=== PATIENT | female | born 2000 | race Caucasian/White ===

== ENCOUNTER 2024-12-24 10:56 | Outpatient (AMB) | payer OTHER, SELFPAY ==
--- NOTE | 2024-12-24 10:58 | MHC.PC.OV ---
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- norethindrone-e.estradiol-iron 1 mg-10 mcg (24)/10 mcg (2) (Lo Loestrin Fe) 1 tab PO DAILY Tobacco use date assessed: 12/24/24 Dental Screening Dental Screen Date: 12/24/24 Did you have a dental visit in the last 12 months?: Yes Did you have a dental problem in the last 6 months where you did not have access to dental care?: No Was dental information given to patient?: Patient has dentist HPI HPI Comments History of Present Illness Details 24 y/o F with dysmenorrhea, chondromalacia of patella L, Headaches, family hx of colon ca(paternal side), Vape nicotine Surgery: wisdom tooth extraction 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 Family hx: Mom and Dad alive, Younger 1/2 brother; Dad with cololn polyps, PGF colon ca around age 50, MGM MS; Health Maintenance Tdap 2024 [facility] 2024; normal Specialist [employer] E[facility] for epitaxis - no longer ff'd Previous PCP: [facility], limited records rec'd and reviewed. Dad with cololn polyps, PGF colon ca around age 50, History of Present Illness - The patient is a 24-year-old female presenting to establish care & for CPE Previous PCP: [facility], limited records rec'd and reviewed. - Notable family history includes paternal grandfather with colon cancer at age 50 and father with noncancerous polyps at age 42. Great grandfather of colon CA - History of dysmenorrhea and left patellar chondromalacia. - Headachs in past, well controlled now. - Resolved childhood nosebleeds. - Previously mild myopia; no longer requires corrective lenses. - ED visit 12/22/24 for L ring finger lac, [address], Tdap admin. 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 - Maintains a romantic relationship with a boyfriend and feels safe - Utilizes seatbelts; drives safely - Smokes using a vape, contains nicotine; weaning off - Previously danced; experienced knee issues - Regular dental visits; previously had a low eyeglass prescription - Currently on control Health Maintenance - Tetanus vaccination updated in recent visit following an accident - Pap smear performed approximately one to two months ago, reportedly normal - Consideration of lab screening under age 30; consented to blood work Review of Systems - General: Denies recent weight changes - ENT: Denies current recurrent nosebleeds - Respiratory: Denies any breathing difficulties - Cardiovascular: Denies chest pain - Gastrointestinal: Reports family comp the history of colon issues - Musculoskeletal: Reports history of patellar chondromalacia; denies current issues - Neurological: Reports headaches; denies dizziness - Dermatological: Denies any new skin lesions - Mental Health: Denies anxiety or depression - Allergies: Reports allergy to penicillin Physical Exam General: Well developed, well nourished, in no acute distress. Appears stated age. Head: Normocephalic, atraumatic. Eyes: Pupils are equal, round and reactive to light and accommodation. Conjunctivae are clear. Vision grossly normal. Ears: TMs clear AU, EACS WNL Nose: Patent, without discharge. Neck: Supple, no adenopathy or thyromegaly. Breast: Edu on SBE Lungs: Clear to auscultation bilaterally. No rales, rhonchi or wheeze noted. Good air flow in all soria. Heart: Regular rate and rhythm. No murmurs, click, rubs or gallops are noted. Abdomen: Bowel sounds present in all quadrants. The abdomen is soft, nontender, with no masses or organomegaly noted. No hernias are noted. : Deferred. Reviewed recommendations for routine [employer] Pulses: Peripheral pulses are equal and palpable bilaterally. Extremities: No clubbing, cyanosis nor edema is noted. Sutures present on finger from recent laceration, healing well. Neurologic: Gait and station normal. Cranial Nerves 2-12 intact. Motor strength grossly symmetrical and intact. No sensory loss. Balance normal. Skin: No rashes, ulcers, or lesions noted. Turgor is good. Skin color is good. Hair and nails are without abnormalities. L ring finger, dressing removed, lac edges well approx w/ sutures, no drainge or signs of infection; cleansed and DCD applied. Psych: Normal eye contact, affect and mood appropriate, and normal interactions. Patient is alert and appropriate to context. Mood is good, no anxiety or depression noted. Results Pending Discussion Notes Today, I discussed the patient's family history of colon issues, focusing on the noncancerous polyps in her father and the colon cancer history in her paternal line. I explained that based on current guidelines, she is not considered at high risk for early colon cancer screening. However, maintaining awareness of her father's health is crucial as any abnormal findings in his screenings may necessitate a reassessment of her risk level and potential earlier screening. We reviewed her ongoing use of control for dysmenorrhea and confirmed her allergy to penicillin, underlining the importance of avoidance. She expressed concerns about the colon cancer risk, and I advised attentive monitoring of family updates and encouraged continued healthy practices. I also discussed the importance of addressing nicotine use, and she remarked on her effort to reduce vaping. Finally, I introduced her to our patient portal for streamlined communication and monitoring. Assessment and Plan 1. Family History of Colon Polyps and Cancer - Not high risk for early colorectal cancer screening; monitor family updates. 2. Dysmenorrhea - Well-managed with control. 3. Chondromalacia Patella - Improved; no current therapy needed. 4. Headaches - No current treatment required. 5. 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 6. Nicotine Use via Vaping - Support cessation; decreasing usage. 7. Health Maintenance - Pap smear normal; tetanus updated; blood screening agreed. 8. Sutures L finger Advised to schedule appt on Tuesday of next week for removal. Keep clean dry and monitor for infection Patient Instructions - Keep track of family health updates, focusing on father's colonoscopy outcomes. - Continue control for dysmenorrhea management. - Wean off vaping to improve health; assistance available. - Review online patient portal for ease of communication with the clinic. - Follow up for lab work as planned and future physical exams. - Return if experiencing new or worsening symptoms. RTO 1 year CPE Consent I obtained consent from the patient for routine blood work to screen for common health parameters such as cholesterol and glucose levels. The process was explained along with the minimal risks associated with blood draws. The patient was informed about normal intervals for preventive screenings and expressed understanding and willingness to proceed. The patient agreed to communication via the patient portal for rapid access and monitoring. Patient was informed and verbally consented to the use of an ambient scribe for clinic note documentation during this visit. An additional 30 minutes was spent addressing the problem(s) noted at todays visit. This includes time spent before the visit reviewing the chart, time spent during the visit, and time spent after the visit on documentation reviewing laboratory results, diagnostic imaging, medications, performing a medically necessary evaluation, counseling on diagnoses, care coordination, ordering appropriate tests, ordering appropriate medications, review of tests performed by other providers, reporting test results with the patient, communication with other healthcare providers. [facility] Medical History (Updated 12/24/24 @ 11:56 by Gloria Rivera [facility]) No pertinent family history No pertinent past medical history Surgical History (Updated 12/24/24 @ 11:07 by Katerina Gates MA) No pertinent past surgical history Social History (Updated 12/24/24 @ 11:07 by Katerina Gates MA) Household Members: Family Household Members Other:: Parents Both parents involved: No Caregiver staying overnight: No Housing: House Are you a primary child care coordinator to a significant other at home: No Do you presently have visiting nurse or other home services: No 75 years or older and lives alone: No Alcohol intake: current Alcohol intake frequency: a few times a month Patient Tobacco Use Status: Never used Tobacco e-Cigarette/Vaping Use: Never Used Second Hand Smoke Exposure: No Current occupational status: employed 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 1. Little interest or pleasure in doing things: not at all 2. Feeling down, depressed, or hopeless: not at all 3. Trouble falling or staying asleep, or sleeping too much: not at all 4. Feeling tired or having little energy: not at all 5. Poor appetite or overeating: not at all 6. Feeling bad about yourself - or that you are a failure or have let yourself or your family down: not at all 7. Trouble concentrating on things, such as reading the newspaper or watching television: not at all 8. Moving or speaking so slowly that other people could have noticed. Or the opposite - being so fidgety or restless that you have been moving around a lot more than usual: not at all 9. Thoughts that you would be better off or of hurting yourself in some way: not at all Total score: 0 Depression Screening Interpretation: Negative Depression Screening Done: Yes 49237 - PHQ-9 Billing: Yes Source: Developed by Drs. Perry Watkins, Fatuma Crockett, Girma Kurtz and colleagues, with an educational milan from [employer]. Thrive Questionnaire Date Thrive assessed: 12/24/24 I am a: Patient What is your living situation today?: I have a steady place to live Within the past 12 months, did the food you bought not last and you didn't have the money to get more?: Never true Within the past 12 months, did you worry whether your food would run out before you got money to buy more?: Never true Do you have trouble paying for medicines?: No Do you have trouble getting transportation to medical appointments?: No Do you have trouble paying your heating and electricity bill?: No Do you have trouble taking care of your child, family member or friend?: No Do you have trouble with day-to-day activities such as bathing, preparing meals, shopping, managing finances, etc.?: No Are you currently unemployed and looking for a job?: No Are you interested in more education?: No Please select the resources that you would like help with: None Currently or been in a relationship where the following occur: No concerns reported THRIVE Score: 0 AUDIT C Alcohol Use Questionnaire (AUDIT-C) 1. How often do you have a drink containing alcohol?: 2-4 times a month 2. How many drinks containing alcohol do you have on a typical day when you are drinking?: 5 or 6 3. How often do you have six or more drinks on one occasion?: Less than monthly Total Score: 5 Score Reviewed/Action Taken: Yes MAXINE-7 AMB Questionnaire MAXINE-7 Date MAXINE - 7 assessed: 12/24/24 Feeling nervous, anxious, or on edge: 0 = Not at all Not being able to stop or control worryin = Not at all Worrying too much about different things: 0 = Not at all Trouble relaxin = Not at all Being so restless that it is hard to sit still: 0 = Not at all Becoming easily annoyed or irritable: 0 = Not at all Feeling afraid as if something awful might happen: 0 = Not at all Total MAXINE-7 score (0-4 normal; 5-9 mild; 10-14 moderate; 15-21 severe): 0 Source: Developed by Drs. Perry Watkins, Fatuma Crockett, Girma Kurtz and colleagues, with an educational milan from [employer]. MAXINE-7 Assessment Billing MAXINE-7 Assessment Tool: MAXINE-7 Assessment 93799 Physical exam (Primary Care) Vital Signs: Last Vital Signs Temp 97.4 F 12/24/24 11:02 Pulse 65 12/24/24 11:02 Resp 12 12/24/24 11:02 BP 118/68 12/24/24 11:02 Pulse Ox 99 12/24/24 11:02 Oxygen Delivery Method Room Air 12/24/24 11:02 BMI result Body Mass Index 23.0 Tobacco/Smoking Status: Tobacco use Status Tobacco use date assessed 12/24/24 12/24/24 11:04 Patient Tobacco Use Status Never used Tobacco 12/24/24 11:07 e-Cigarette/Vaping Use Never Used 12/24/24 11:07 Are you ready to quit: Yes Tobacco cessation counseling provided: Yes Items discussed: Nicotine replacement, QuitWorks and Other Relapse Prevention: discussed the importance of a supportive environment, discussed extending NRT, discussed negative mood or depression after quitting, weight gain after smoking is common and discussed dietary, exercise and/or lifestyle changes Number of minutes spent counselin CPT code: 85065 - 4-10 Minutes PHQ-9: PHQ-9 Score PHQ-9: Total score 0 12/24/24 11:04 Depression Screening Interpretation: Negative Thrive Assessment: Date of Thrive Assessment Date Thrive assessed 12/24/24 12/24/24 11:04 Currently or been in a relationship where the following occur: No concerns reported Coding Level of Care Code New Pt Level 3 (73712) New Pt Prev Care 18-39yr(36011 Diagnoses Encounter to establish care Z76.89 Family history of colon cancer Z80.0 Nicotine vapor product user Z72.0 Laceration of left ring finger without foreign body without damage to nail, initial encounter S61.215A Encounter type: initial encounter Finger: ring finger Damage to nail status: without damage Foreign body presence: without foreign body Laterality: left History of headache Z87.898 Laboratory exam ordered as part of routine general medical examination Z00.00 Encounter for general adult medical examination without abnormal findings Z00.00 Additional Codes MAXINE-7 Assessment Billing - MAXINE-7 Assessment Tool: MAXINE-7 Assessment 65053 ([id number]) PHQ-9 - 92909 - PHQ-9 Billing: Yes ([id number]) Vital Signs *Quality* - CPT code: 42602 - 4-10 Minutes ([id number]) Assessment & Plan Assessment & Plan (1) Encounter to establish care: Code(s): Z76.89 - Persons encountering health services in other specified circumstances (2) Family history of colon cancer: Comment: Dad age 42 noncancerous polyps PGF colon ca around age 50 Great PGF of colon ca unsure of age Code(s): Z80.0 - Family history of malignant neoplasm of digestive organs Category: Medical (3) Nicotine vapor product user: Code(s): Z72.0 - Tobacco use Category: Social Hx (4) Finger laceration: Code(s): S61.219A - Laceration without foreign body of unspecified finger without damage to nail, initial encounter Category: Medical Qualifiers: Encounter type: initial encounter Finger: ring finger Damage to nail status: without damage Foreign body presence: without foreign body Laterality: left Qualified Code(s): S61.215A - Laceration without foreign body of left ring finger without damage to nail, initial encounter (5) History of headache: Code(s): Z87.898 - Personal history of other specified conditions Category: Medical (6) Laboratory exam ordered as part of routine general medical examination: Code(s): Z00.00 - Encounter for general adult medical examination without abnormal findings Category: Medical (7) Encounter for general adult medical examination without abnormal findings: Onset Date: ~12/24/24 Code(s): Z00.00 - Encounter for general adult medical examination without abnormal findings Category: Medical Plan . Orders: Orders Ferritin Today Z00.00 - Encounter for general adult medical examination without abnormal findings Lipid Panel Today Z00.00 - Encounter for general adult medical examination without abnormal findings Vitamin B12 and Folate Today Z00.00 - Encounter for general adult medical examination without abnormal findings Vitamin D 25-OH Total Today Z00.00 - Encounter for general adult medical examination without abnormal findings Complete Blood Count no Diff Today Z00.00 - Encounter for general adult medical examination without abnormal findings Comprehensive Met. Panel Today Z00.00 - Encounter for general adult medical examination without abnormal findings Hemoglobin A1c Today Z00.00 - Encounter for general adult medical examination without abnormal findings Microalbumin, Random (w Creat) Today Z00.00 - Encounter for general adult medical examination without abnormal findings TSH reflex Free T4 Today Z00.00 - Encounter for general adult medical examination without abnormal findings Patient Instructions: Walk-In Care (Urgent Care): We Make it Easy Walk-in for urgent medical issues such as: ? Seasonal Allergies ? Insect Bites ? Cough ? Diarrhea ? Acute Asthma Attacks ? Back, Knee or Joint Pain ? Ear Infection ? Fever without a Rash ? Headaches ? Nausea ? Marcus Eye, Rash or Skin Irritation ? Sore Throat ? Sports Physicals ? Vomiting Most insurances are accepted. Patients do not need to be part of the [facility] to seek care at the walk-in clinic. Locations [facility] , [place] [address] ? [phone] [facility] Walk-In Care in [place] provides services to ages 18 and over. Open Tuesday-Tuesday: 8 a.m. to 5 p.m. and Tuesday: 9 a.m. to 3 p.m.* *Hours may vary due to staffing availability. To confirm Walk-In Care hours in [place], please call [phone]. [address] [place] [address] ? [phone] [facility] Walk-In Care in [place] provides services to ages 12 and over. Open Tuesday-Tuesday: 8 a.m. to 5 p.m. Hours may vary due to staffing availability. To confirm Walk-In Care hours in [place], please call [phone]. LABORATORY SERVICES: [facility] Lab ? Primary Location [address] [place] [address] Tuesday through Tuesday 6:00 AM ? 5:00 PM Tuesday 7:00 AM ? 11:00 AM* [phone] The [facility] Lab is centrally located near the front entrance of the Medical Center for easy outpatient access. Convenient parking is provided for outpatients. *Hours may vary due to staffing availability. To confirm Laboratory hours for any location, please call [phone]. Offsite Location For your convenience, we offer offsite laboratory draw stations at the following locations: [address] [place] [address] ? [address], [address] [place] [address] Tuesday through Tuesday 7:30 AM ? 1:00 PM* [phone] *Hours may vary due to staffing availability. To confirm Laboratory hours for any location, please call [phone]. [place] ? [address] Tuesday through Tuesday 6:00 AM ? 3:30 PM* Tuesday 6:30 AM ? 3 PM* [phone] *Hours may vary due to staffing availability. To confirm Laboratory hours for any location, please call [phone] [place] [address] Tuesday through Tuesday 7:30 AM ? 4:00 PM* [phone] *Hours may vary due to staffing availability. To confirm Laboratory hours for any location, please call [phone] [place] [address] Tuesday through 9:00 AM ? 4:00 PM* *Hours may vary due to staffing availability. To confirm Laboratory hours for any location, please call [phone]. Appointments are not necessary. Walk-ins are welcome. Like all the departments throughout the [facility], our Lab undergoes frequent reviews to ensure the quality and accuracy of test results, and our staff takes special pride in its status as a nationally accredited facility. Patient Portal: ONE PATIENT. ONE RECORD. BETTER CARE. [facility] has a fully integrated, cutting-edge mobile electronic health information system that has revolutionized the way we care for our patients and manage our organization. This system improves communication and coordination enabling us to provide safe, higher-quality care, and an overall positive experience for staff and patients. Our first priority, as always, is to deliver the highest quality care possible. The system is running in the background supporting that priority. This portal is for all [facility] services and practices. If you are experiencing any technical difficulties with enrolling or logging into the Patient Portal please complete the [facility] Patient Portal Technical Support Form. [facility] now offers a new secure on-line interactive tool for patients to review their health information ? ?Patient Portal. This interactive web portal will enable patients and their families to take an active role in their care by providing easy, secure access to their health information via the internet. The Patient Portal provides patients with instant access to their health information, including laboratory results, medications, allergies, demographic information, visit history, and more. In addition to managing their own care, parents and health care proxies with authorized consent will appreciate the ability to access the records of those individuals for whom they provide care. Please note: if you wish to gain access (Proxy) to another patient?s portal, you will be required to come to the Medical Records Department in person at [facility]. Both the patient giving proxy access and the proxy will need to provide photo identification and complete the appropriate authorization. The Patient Portal also allows track their appointments online. The [facility] Patient Portal also saves patients time by allowing them to submit updates to their demographic and contact information prior to their visits. Portal email notifications will also alert patients to any new activity on their portal, such as test results and new appointments. In order to initially enroll in the [facility] Patient Portal, you will need to enter some required information including the following: your [facility] Medical Record number your personal home email address name date of Please note: In order to enroll in the [facility] Patient Portal, we need to have your email address on file in your electronic medical record. ?The email address needs to be specific for one person (yourself) in order for your Portal enrollment to be successful. ?You can update your email address in person with our Registration staff when you are registering for a hospital visit. ?Otherwise, you will need to come to the Health Information Management (Medical Records) Department at [facility]. ?We are open from Tuesday ? Tuesday from 7:30 a.m. ? 4:30 p.m. ?You will be required to present a photo id. Once you have successfully enrolled in the Patient Portal, you will receive a one-time user id and password for the Portal, sent to your email address. ?This will allow you to log into the Patient Portal within 99 hrs and reset your own logon id and password, and define personal security questions. ?Once your permanent login and password have been set, you can log into the [facility] Patient Portal at any time via the blue button above or from the Portal [employer] button on any page of the [facility] website. [facility] and [facility] encourage all of our patients to enroll in Patient Portal as it presents a valuable opportunity for patients and their families to actively participate in their care and stay healthy Welcome to [facility]. ?We look forward to working with you. Health screenings for women You should visit your health care provider from time to time, even if you are healthy. The purpose of these visits is to: Screen for medical issues Assess your risk for future medical problems Encourage a healthy lifestyle Update vaccinations and other preventive care services Help you get to know your provider in case of an illness Information Even if you feel fine, you should still see your provider for regular checkups. These visits can help you avoid problems in the future. For example, the only way to find out if you have high blood pressure is to have it checked regularly. High blood sugar and high cholesterol levels also may not have any symptoms in the early stages. A simple blood test can check for these conditions. There are specific times when you should see your provider or receive specific health screenings. The [place] Preventive Services Task Force publishes a list of recommended screenings. Below are screening guidelines for women ages 18 to 39. BLOOD PRESSURE SCREENING Your blood pressure should be checked at least once every 3 to 5 years if: Your blood pressure is in the normal range (top number less than 120 mm Hg and bottom number less than 80 mm Hg) You don't have risk factors for high blood pressure Ask your provider if you need your blood pressure checked more often if: The top number is 120 to 129 mm Hg or the bottom number is 70 to 79 mm Hg You have diabetes, heart disease, kidney problems, are overweight, or have certain other health conditions You have a first-degree relative with high blood pressure You are Black You had high blood pressure during a If the top number is 130 mm Hg or greater or the bottom number is 80 mm Hg or greater, this is considered stage 1 hypertension. Schedule an appointment with your provider to learn how you can reduce your blood pressure. Watch for blood pressure screenings in your area. Ask your provider if you can stop in to have your blood pressure checked. BREAST CANCER SCREENING Experts do not agree about the benefits of breast self-exams in finding breast cancer or saving lives. Talk to your provider about what is best for you. A screening mammogram is not recommended for most women under age 40. Your provider may discuss and recommend mammograms, MRI scans, or ultrasounds if you have an increased risk for breast cancer, such as: A mother or sister who had breast cancer at a young age (most often starting screening earlier than the age the close relative was diagnosed) You carry a high-risk genetic marker CERVICAL CANCER SCREENING Cervical cancer screening should start at age 21 years unless your provider advises otherwise. After the first test: Women ages 21 through 29 should have a Pap test every 3 years. Exoprts do not agree on whether HPV testing is recommended for this age group. Women ages 30 through 65 should be screened with either a Pap test every 3 years or the HPV test every 5 years or both tests every 5 years (called cotesting ). Women who have been treated for precancer (cervical dysplasia) should continue to have Pap tests for 20 years after treatment or until age 65, whichever is longer. If you have had your uterus and cervix removed (total hysterectomy), and you have not been diagnosed with cervical cancer or precancer (high grade cervical neoplasia), you do not need cervical cancer screening. CHOLESTEROL SCREENING Cholesterol screening should begin at: Age 45 for women with no known risk factors for coronary heart disease Age 20 for women with known risk factors for coronary heart disease Repeat cholesterol screening should take place: Every 5 years for women with normal cholesterol levels More often if changes occur in lifestyle (including weight gain and diet) More often if you have diabetes, heart disease, kidney problems, or certain other conditions DIABETES SCREENING You should be screened for diabetes starting at age 35 and then repeated every 3 years if you have no risk factors for diabetes. Screening may need to start earlier and be repeated more often if you have other risk factors for diabetes, such as: You have a first degree relative with diabetes. You are overweight or have obesity. You have high blood pressure, prediabetes, or a history of heart disease. Screening for diabetes should be done if you are planning to become and you are overweight and have other risk factors such as high blood pressure. DENTAL EXAM Go to the dentist once or twice every year for an exam and cleaning. Your dentist will evaluate if you need more frequent visits. EYE EXAM Have an eye exam every 5 to 10 years before age 40. If you have vision problems, have an eye exam every 2 years or more often if recommended by your provider. You should have an eye exam that includes an examination of your retina (back of your eye) at least every year if you have diabetes. IMMUNIZATIONS Commonly needed vaccines include: Flu shot: get one every year. COVID-19 vaccine: ask your provider what is best for you. Tetanus-diphtheria and acellular pertussis (Tdap) vaccine: have one at or after age 19 as one of your tetanus-diphtheria vaccines if you did not receive it as an adolescent. Tetanus-diphtheria: have a booster (or Tdap) every 10 years. Varicella vaccine: receive 2 doses if you never had chickenpox or the varicella vaccine. Hepatitis B vaccine: receive 2, 3, or 4 doses, depending on your exact circumstances. Measles, mumps, and rubella (MMR) vaccine: receive 1 to 2 doses if you are not already immune to MMR. Your provider can tell you if you are immune. Ask your provider about the human papillomavirus (HPV) vaccine if: You have not received the HPV vaccine in the past You have not completed the full vaccine series (you should catch up on this shot) Ask your provider if you should receive other immunizations if you have certain health problems that increase your risk for some diseases such as pneumonia. INFECTIOUS DISEASE SCREENING Women who are sexually active should be screened for chlamydia and gonorrhea up until age 25. Women 25 years and older should be screened for chlamydia and gonorrhea if at high risk. Screening for hepatitis C: All adults ages 18 to 79 should get a one-time test for hepatitis C. people should be screened at every . Screening for human immunodeficiency virus (HIV): All people ages 15 to 65 should get a one-time test for HIV. Depending on your lifestyle and medical history, you may also need to be screened for infections such as syphilis and HIV, as well as other infections. PHYSICAL EXAM All adults should visit their provider from time to time, even if they are healthy. The purpose of these visits is to: Screen for disease Assess your risk of future medical problems Encourage a healthy lifestyle Update your vaccinations and other preventive care services Maintain a relationship with a provider in case of an illness Your height, weight, and BMI should be checked at every exam. During your exam, your provider may ask you about: Depression and anxiety Diet and exercise Alcohol and tobacco use Safety issues, such as using seat belts, smoke detectors, and intimate partner violence Your medicines and risk for interactions SKIN SELF-EXAM Your provider may check your skin for signs of skin cancer, especially if you're at high risk, such as if you: Have had skin cancer before Have close relatives with skin cancer Have a weakened immune system OTHER SCREENING Talk with your provider about colon cancer screening if you have a strong family history of colon cancer or polyps, or if you have had inflammatory bowel disease or polyps yourself. Routine bone density screening of women under 40 is not recommended. WHAT IS VAPING? Vaping is the act of inhaling aerosols from battery-powered devices called electronic cigarettes, also known as vapes, vape pens, e-hookahs, mods, and electronic nicotine delivery systems (ENDS).1 These aerosols are produced by the heating of a liquid that contains nicotine, flavorings, cannabinoid (CBD) oils, and other chemicals.1 Nicotine is a highly addictive and harmful chemical found in tobacco cigarettes and vapes.2 It is also the substance that keeps people using tobacco products, making it difficult to quit. Nicotine can rewire and activate the reward pathway in the brain, making people use this product over and over again regardless of risks.2,3 In some instances, vaping devices can also contain tetrahydrocannabinol (THC), which is the psychoactive compound of marijuana that gives people a ?high.?3,4 WHAT SYMPTOMS ARE ASSOCIATED WITH VAPING?1,4-6 ? E-vaping?associated lung injury (EVALI) ? Heart palpitations ? High heart rate ? Chest pain ? Shortness of breath WHO IS AT RISK?? ? Cough ? Asthma ? Nausea ? Vomiting ? Diarrhea ? Traditional tobacco smokers ? Marketers advertise e-cigarettes as a smoking-cessation tool.1,2,4,5 ? Youth populations, particularly teens2-4 ? One in four high school students reported the use of e-cigarettes.2,3 ? Since 2014, e-cigarettes have been the most commonly used tobacco product among [place] youth. In 2020, an estimated 3.6 million middle and high school students reported using an e-cigarette in the last 30 days.1 ? The flavors in vaping devices appeal to younger populations. WHAT ARE THE CONSEQUENCES OF VAPING? There are numerous particles that are inhaled when using nicotine-containing vaping products. These particles cause severe swelling and irritation to the lungs.3,5,6 This will damage the lungs and can lead to scarring and narrowing of the tubes in the lungs that allow for air exchange.6 Also, when you become addicted to nicotine, you may get symptoms like headaches or cravings when discontinuing or reducing the use of nicotine-containing products.5 HOW CAN A DOCTOR HELP YOU SUCCESSFULLY QUIT VAPING? ? Assess your readiness to quit, acknowledge barriers, and help you set goals.5 ? Consider referral to behavioral therapy. ? Educate about and recommend nicotine-replacement therapy.6 ? Recommend complementary resources and healthy habits: ? Call (802) QUIT-NOW for mobile help. ? Search ?How to Stop Vaping? online. ? Exercise can help with withdrawal symptoms and improve lung function.
[2024-12-24 11:02] VITALS: BP 118/68; PULSE 65; RESP 12; TEMP 36.3; O2SAT 99; BMI 23.0
--- OUTSIDE RECORDS SUMMARY | 2024-12-24 12:26 | XMS_ITS | Data Portability ---
Author Organization [place] [facility],, KATELYN GAINES MD Address [address] [address] Care Team Providers Care Patent Chemist Name Role Phone [facility] Primary Care Provider [phone] Assessment No assessment recorded. Plan of Treatment Reminders Order Date Submit Date Provider Last Modified By Organization Details Last Modified Time Details Appointments ANNUAL EXAM 2025 08:20A M Katelyn Gaines MD Not available Not available Not available Lab cytology report, thin prep, smear or scraping, cervical or vaginal 2024 025 MEGAN [facility] (Centralized Electronic Ordering - All Locations), Patient Can Go To The Location Of Their Choice, [id number] 10/29/2024 14:20:21 cytology report, thin prep, smear or scraping, cervical or vaginal 2023 024 MEGAN [facility] (Centralized Electronic Ordering - All Locations), Patient Can Go To The Location Of Their Choice, [id number] 10/27/2023 12:06:43 beta-HCG, qualitati ve, serum or plasma 2022 023 [email or web address] [facility] (Centralized Electronic Ordering - All Locations), Patient Can Go To The Location Of Their Choice, [id number] 12/02/2022 07:29:19 prolactin , serum 2022 023 [email or web address] (Centralized Electronic Ordering - All Locations), Patient Can Go To The Location Of Their Choice, 12/02/2022 07:29:19 TSH, serum or plasma 2022 023 t[facility] (Centralized Electronic Ordering - All Locations), Patient Can Go To The Location Of Their Choice, [id number] 12/02/2022 07:29:18 CBC w/ auto diff 2022 023 [facility] (Centralized Electronic Ordering - All Locations), Patient Can Go To The Location Of Their Choice, [id number] 12/02/2022 07:29:19 lyme disease igg+igm, serum, reflex western blot 2022 023 [facility] (Centralized Electronic Ordering - All Locations), Patient Can Go To The Location Of Their Choice, [id number] 12/02/2022 07:29:19 Referral None recorded. Procedures removal, implantab le contracep tive (PROC) 2022 023 DUNBAR In-Office Order, Internal Use Only DO Not Attach Compendium DO Not Attach Compendium, Do Not Delete/merge, [id number] 12/22/2022 09:47:39 Surgeries None recorded. Imaging None recorded. Medication Orders Lo Loestrin Fe 1 mg-10 mcg (24)/10 mcg (2) tablet 2024 025 [facility] #[id number], [address] [place], [address], 10/24/2024 09:29:50 Lo Loestrin Fe 1 mg-10 mcg (24)/10 mcg (2) tablet 2023 024 [facility] #[id number], [address] [place], [address], 10/24/2023 10:30:59 Patient TargetsNo targets recorded. Patient Instructions Encounter Date Encounter Id Patient Instructions Last Modified By Organization Details Last Modified Time 11/25/2022 [id number] This visit is a phone telehealth visit. The patient consented to the visit by phone. The patient was at home at the time of the call and the provider and patient were the only people on the line. I was at [address] [place] [address], [address] [place] [address], at the time of the call. She is concerned because she had had fatigue since she has had the abnormal vaginal bleeding happening, over the past year. She had a CBC done with her prior forestry and wildlife manager a few months ago and she was not anemic, however she feels she has been bleeding a lot since then. She would like blood testing done. She notes she has a generalized lower abdominal discomfort that happens after she eats, for the past several months, she has not discussed this with her PCP yet. Note from 11/22/22: She is here as a new patient for second opinion. she had a Nexplanon placed in 08/01, and for the first 4 to 5 months had amenorrhea after it was placed, but then started having irregular bleeding, and has had irregular bleeding since then. Her [employer] R[employer]ER, Dr. Brittany Barton, had her get a CBC, which was normal, an HCG, which was negative, and a pelvic sonogram which was unremarkable. The endometrium was thin, at 1 mm. She was put on oral premarin 0.625 mg a day, for a month, but it did not improve the irregular bleeding. A month ago she started taking daily norethindrone, but that has not improve the bleeding either. She notes her bleeding can get painful, and she on occasion gets menstrual headaches. She was originally put on the OCP in freshman year of high school due to severe dysmenorrhea, not for control, It used to be so bad I would throw up form the pain. She was switched from one pill to another but had irregular bleeding on both. she never took Lo Loestin. She has a family history of endometriosis. We discussed that her endometrium may actually be very thin and this may be contributing to the bleeding. The Premarin did not improve the bleeding, however. She would like to switch from this form of control as she is tired of the abnormal bleeding. We discussed options and she would like to try the lo loestrin, and ther reasoning why this may work, will add this in now and have her return for Nexplanon removal. She understands that this may not control the abnormal bleeding either, there is no guarantee. If this does not then the next try would be for depo provera. She is reassured that her prior forestry and wildlife manager did do everything in the right order, her case is just challenging. In regard to the fatigue, will check cbc, tsh, and lyme. In regard to the DUB will check serum prolactin. In regard to the abdominal pain she is advised to contact her PCP, and to also try OTC Prilosec generic for a month to see if it helps. All questions answered. The patient was agreeable to this plan. She is aware of the limitations caused by the covid restrictions, and this phone call. Face to face discussion 30 minutes Not available 11/25/2022 09:18:37 12/22/2022 [id number] She is here for Nexplanon removal. She has bene on the lo loestrin for a month and notes a great improvement in her moods, and the abnormal bleeding stopped for a week, she had a few days of bleeding, and has now stopped for the past 10 days, so she is happy about that. It is the longest she has gone without bleeding for many months. She is tolerating te pills well and remembering to take them daily, and the discount card brought the cost down to $25 for 3 months, which is affordable. We discussed that she could try to take the pills for another cycle then stop and see if the amenorrhea continued with the nexplanon alone, as it has only been in since 08/01. She declines this option as she notes her moods are much improved on this OCP. She tolerated the removal well. Post procedure care discussed. Not available 12/22/2022 09:43:37 10/24/2023 [id number] learning about healthy weight Not available 10/24/2023 10:30:42 She is here for annual, this is her first annual here. She had her Nexplanon removed in 12/31, is doing well on the lo loestrin, no abnormal bleeding. Menses last 7 days of light to moderate bleeding, never heavy. She appears to be doing well. . Monthly self breast exam was taught, and stressed, and is advised to call if she discovers any new mass in the breast. We reviewed the interaction of the OCP with antibiotics. We discussed the need to use a condom during antibiotic use and also for a minimum of three weeks following the use of antibiotics. We discused interactions with some herbal and OTC meds, such as [facility] Possible side effects, and the stated risk of one in 10,000 to develop a blood clot/ DVT/PE were also discussed. Safe sex was stressed. All questions answered, rx to be called in to pharmacy. [email or web address] Not available 10/24/2023 10:31:10 06/04/2024 [id number] secondary amenorrhea: care instructions [email or web address] Not available 06/04/2024 11:11:57 She is here to discuss her abnormal vaginal bleeding pattern. She is concerned because she has had so many problems in the past. We had removed her Nexplanon in 12/31 and switched her to te lo loestrin. She notes that her abnormal bleeding resolved immediately and she was having regular, light meses monthly. However she missed her menses in April entirely, and the period in May was only 2 days of light spotting, that happened at the right time of the cycle in her pill pack. No pelvic pain. The bleeding was 05/29 and 05/30, no bleeding since then. She has not missed any pills. She did a few home tests, all negative. ____ Note from 11/30: She is here as a new patient for second opinion. she had a Nexplanon placed in 08/01, and for the first 4 to 5 months had amenorrhea after it was placed, but then started having irregular bleeding, and has had irregular bleeding since then. Her [employer] SCRE[employer] RACKER, Dr. Brittany Barton, had her get a CBC, which was normal, an HCG, which was negative, and a pelvic sonogram which was unremarkable. The endometrium was thin, at 1 mm. She was put on oral premarin 0.625 mg a day, for a month, but it did not improve the irregular bleeding. A month ago she started taking daily norethindrone, but that has not improve the bleeding either. She notes her bleeding can get painful, and she on occasion gets menstrual headaches. She was originally put on the OCP in freshman year of high school due to severe dysmenorrhea, not for control, It used to be so bad I would throw up form the pain. She was switched from one pill to another but had irregular bleeding on both. she never took Lo Loestin. She has a family history of endometriosis. We discussed that her endometrium may actually be very thin and this may be contributing to the bleeding. The Premarin did not improve the bleeding, however. She would like to switch from this form of control as she is tired of the abnormal bleeding. We discussed options and she would like to try the lo loestrin, and ther reasoning why this may work, will add this in now and have her return for Nexplanon removal. She understands that this may not control the abnormal bleeding either, there is no guarantee. If this does not then the next try would be for depo provera. She is reassured that her prior forestry and wildlife manager did do everything in the right order, her case is just challenging. ___ She has been very happy with this pill, but in the past she had amenorrhea followed by menorrhagia on other OCP and so she is worried that may happen again. She is advised that because the lo loestrin only has 2 pill free days, it is common to miss cycles or have amenorrhea. As long as her bleeding is at the right time, and short and there is no pain, that is considered normal for this pill. If she has complete amenorrhea that can also be normal. She is advise to do a home test if she misses a cycle but if negative and no pain then likely it is just the pill dong what it does. She is reassured. All questions answered. Face to face discussion, chart review and coordination of care: 25 minutes alan Not available 06/04/2024 11:39:46 10/24/2024 [id number] learning about healthy weight alan Not available 10/24/2024 09:29:47 She is here for annual, doing well on the Lo Loestrin, has no menses, no dysmenorrhea, is very happy. __ Note from 06/03: She is here to discuss her abnormal vaginal bleeding pattern. She is concerned because she has had so many problems in the past. We had removed her Nexplanon in 12/31 and switched her to te lo loestrin. She notes that her abnormal bleeding resolved immediately and she was having regular, light meses monthly. However she missed her menses in October entirely, and the period in May was only 2 days of light spotting, that happened at the right time of the cycle in her pill pack. No pelvic pain. The bleeding was 05/29 and 05/30, no bleeding since then. She has not missed any pills. She did a few home tests, all negative. ____ Note from 11/30: She is here as a new patient for second opinion. she had a Nexplanon placed in 08/01, and for the first 4 to 5 months had amenorrhea after it was placed, but then started having irregular bleeding, and has had irregular bleeding since then. Her [employer]CRE[employer] R[employer]ER, Dr. Brittany Barton, had her get a CBC, which was normal, an HCG, which was negative, and a pelvic sonogram which was unremarkable. The endometrium was thin, at 1 mm. She was put on oral premarin 0.625 mg a day, for a month, but it did not improve the irregular bleeding. A month ago she started taking daily norethindrone, but that has not improve the bleeding either. She notes her bleeding can get painful, and she on occasion gets menstrual headaches. She was originally put on the OCP in freshman year of high school due to severe dysmenorrhea, not for control, It used to be so bad I would throw up form the pain. She was switched from one pill to another but had irregular bleeding on both. she never took Lo Loestin. She has a family history of endometriosis. We discussed that her endometrium may actually be very thin and this may be contributing to the bleeding. The Premarin did not improve the bleeding, however. She would like to switch from this form of control as she is tired of the abnormal bleeding. We discussed options and she would like to try the lo loestrin, and ther reasoning why this may work, will add this in now and have her return for Nexplanon removal. She understands that this may not control the abnormal bleeding either, there is no guarantee. If this does not then the next try would be for depo provera. She is reassured that her prior forestry and wildlife manager did do everything in the right order, her case is just challenging. ___ She appears to be doing well. Monthly self breast exam was taught, and stressed, and is advised to call if she discovers any new mass in the breast. We reviewed the interaction of the OCP with antibiotics. We discussed the need to use a condom during antibiotic use and also for a minimum of three weeks following the use of antibiotics. We discused interactions with some herbal and OTC meds, such as [facility] A's Possible side effects, and the stated risk of one in 10,000 to develop a blood clot/ DVT/PE were also discussed. Safe sex was stressed. All questions answered, rx to be called in to pharmacy. Not available 10/24/2024 09:30:07 Reason for Referral None Reported. Results Created Date Observation Date Name Description Value Unit Range Abnormal Flag Note LastModifiedBy Organization Detail LastModifiedTime 12/23/1912/22/2022 remov al, impla ntabl e contr acept carmine (PROC ) device intact Not Available In-Office Order Internal Use Only DO Not Attach Compendium DO Not Attach Compendium, Do Not Delete/merge, [id number] 12/22/2022 08:53:38 10/24/19 24 10/26/2023 IGP, CTNG, RFX APTIM A HPV ASCU chlamydia, nuc. acid amp Negati ve negati ve Not Available [facility] ([facility]) [address] [place], [address], 10/27/2023 12:06:43 10/24/19 24 10/26/2023 IGP, CTNG, RFX APTIM A HPV ASCU gonococcus, nuc. acid amp Negati ve negati ve Not Available [facility] ([facility]) [address] [place], [address], 10/27/2023 12:06:43 10/24/19 24 10/27/2023 IGP, CTNG, RFX APTIM A HPV ASCU diagnosis: Commen t NEGAT CARMINE FOR INTRA EPITH ELIAL LESIO N OR MALIG MICHELLE . FUNGA L ORGAN ISMS MORPH OLOGI OLAMIDE CONSI STENT WITH JONATHAN DA SPECI ES ARE PRESE NT. Not Available [facility] ([facility]) [address] [place], [address], 10/27/2023 12:06:43 10/24/19 24 10/27/2023 IGP, CTNG, RFX APTIM A HPV ASCU specimen adequacy: Tye torres for evalu ation . Endoc ervic al and/o r squam ous metap lasti c cells (endo cervi tyrese compo nent) are prese nt. Not Available [facility] ([facility]) [address] [place], [address], 10/27/2023 12:06:43 10/24/19 24 10/27/2023 IGP, CTNG, RFX APTIM A HPV ASCU clinician provided ICD10: Tye nunn Z01.4 19 Not Available [facility] ([facility]) [address] [place], [address], 10/27/2023 12:06:43 10/24/19 24 10/27/2023 IGP, CTNG, RFX APTIM A HPV ASCU performed by: Tye Simmons , Ale nunn (ASCP ) Not Available [facility] ([facility]) [address] [place], [address], 10/27/2023 12:06:43 10/24/19 24 10/27/2023 IGP, CTNG, RFX APTIM A HPV ASCU . . Not Available [facility] ([facility]) [address] [place], [address], 10/27/2023 12:06:43 10/24/19 24 10/27/2023 IGP, CTNG, RFX APTIM A HPV ASCU note: Tye nunn The Pap smear is a scree gaby test desig samir to aid in the detec tion of roque ligna nt and malig nant condi tions of the uteri ne cervi x. It is not a diagn ostic proce dure and shoul d not be used as the sole means of detec ting cervi tyrese cance r. Both false -posi tive and false -nega tive repor ts do occur . Not Available [facility] ([facility]) [address] [place], [address], 10/27/2023 12:06:43 10/24/19 24 10/27/2023 IGP, CTNG, RFX APTIM A HPV ASCU test methodology: TNP The Thin Prep( R) Image r was unabl e to read this speci men. There fore a manua l revie w was perfo rmed. Not Available [facility] ([facility]) [address] [place], [address], 10/27/2023 12:06:43 10/24/19 24 10/27/2023 IGP, CTNG, RFX APTIM A HPV ASCU . Commen t The HPV DNA refle x crite nohemi were not met with this speci men resul t there fore, no HPV testi ng was perfo rmed. Not Available [facility] ([facility]) [address] [place], [address], 10/27/2023 12:06:43 10/25/19 25 10/25/2024 IGP, CTNG, RFX APTIM A HPV ASCU chlamydia, nuc. acid amp Negati ve negati ve Not Available [facility] ([facility]) [address] [place], [address], 10/29/2024 14:20:21 10/25/19 25 10/25/2024 IGP, CTNG, RFX APTIM A HPV ASCU gonococcus, nuc. acid amp Negati ve negati ve Not Available [facility] ([facility]) [address] [place], [address], 10/29/2024 14:20:21 10/25/19 25 10/29/2024 IGP, CTNG, RFX APTIM A HPV ASCU diagnosis: Commen t NEGAT CARMINE FOR INTRA EPITH ELIAL LESIO N OR MALROSEY MICHELLE . FUNGA L ORGAN ISMS MORPH OLOGI OLAMIDE CONSI STENT WITH JONATHAN DA SPECI ES ARE PRESE NT. Not Available [facility] ([facility]) [address] [place], [address], 10/29/2024 14:20:21 10/25/19 25 10/29/2024 IGP, CTNG, RFX APTIM A HPV ASCU specimen adequacy: Commen t Satis facto ry for evalu ation . Endoc ervic al and/o r squam ous metap lasti c cells (endo cervi tyrese compo nent) are prese nt. Not Available [facility] ([facility]) [address] [place], [address], 10/29/2024 14:20:21 10/25/19 25 10/29/2024 IGP, CTNG, RFX APTIM A HPV ASCU clinician provided ICD10: Tye t Z01.4 19 Not Available [facility] ([facility]) [address] [place], [address], 10/29/2024 14:20:21 10/25/19 25 10/29/2024 IGP, CTNG, RFX APTIM A HPV ASCU performed by: Tye t Danny Wilson , Cytol ogist (ASCP ) Not Available [facility] ([facility]) [address] [place], [address], 10/29/2024 14:20:21 10/25/19 25 10/29/2024 IGP, CTNG, RFX APTIM A HPV ASCU . . Not Available [facility] ([facility]) [address] [place], [address], 10/29/2024 14:20:21 10/25/19 25 10/29/2024 IGP, CTNG, RFX APTIM A HPV ASCU note: Commen t The Pap smear is a scree gaby test desig samir to aid in the detec tion of roque ligna nt and malig nant condi tions of the uteri ne cervi x. It is not a diagn ostic proce dure and shoul d not be used as the sole means of detec ting cervi tyrese cance r. Both false -posi tive and false -nega tive repor ts do occur . Not Available [facility] ([facility]) [address] [facility], [place], [address], 10/29/2024 14:20:21 10/25/19 25 10/29/2024 IGP, CTNG, RFX APTIM A HPV ASCU test methodology: Comm t This liqui d based ThinP rep(R ) pap test was scree samir with the use of an image guide d syste m. Not Available [facility] ([facility]) [address] [facility], [place], [address], 10/29/2024 14:20:21 10/25/19 25 10/29/2024 IGP, CTNG, RFX APTIM A HPV ASCU . Commen t The HPV DNA refle x crite nohemi were not met with this speci men resul t there fore, no HPV testi ng was perfo rmed. Not Available [facility] ([facility]) [address] [facility], [place], [address], 10/29/2024 14:20:21 11/23/19 23 11/26/2022 US, pelvi s, trans abdom inal + trans vagin al No observ ation record ed. BARCODE Not Available 2022 08:53:22 Result Notes None recorded. Problems No Known Problems Procedures Surgical History Date Name Laterality Status Provider Name and Address Organization Details Recorded Time 3 Implanon Removal completed Katelyn Gaines MD [address] [facility],[address], [place], [address], [place] [facility], 12/22/2022 09:44:40 Imaging Results None recorded. Procedure Notes None recorded. Medical Equipment None Reported. Allergies Allergen ID Allergen Name Allergen Category Reaction Reaction Severity Criticality Documentation Date Start Date Code Code System Note Provider Name and Address Organization Details Recorded Time 09842 Product containin g penicilli n (product) medicatio n hives Not available Not available 11/22/2022 13752 [id number] SNDARYN Jolly Adam hutchins [place] [facility], 3 08:32:19 Medications Name Sig Start Date Stop Date Status Note LastModified by Organization Details LastModified Time Vitamin B-2 100 mg tablet TAKE 1 TABLET BY MOUTH TWICE A DAY 06/04 completed Not Available Not Available Not Available clindamycin HCl 300 mg capsule TAKE 1 CAPSULE BY MOUTH EVERY 8 HOURS UNTIL FINISHED 10/24 completed Not Available Not Available Not Available fluconazole 150 mg tablet TAKE 1 TABLET BY MOUTH EVERY DAY FOR 1 DAY active Not Available Not Available No t Available sumatriptan 50 mg tablet PLEASE SEE ATTACHED FOR DETAILED DIRECTION S 10/23 completed Not Available Not Available Not Available magnesium 500 mg (as magnesium oxide) tablet TAKE 1 TABLET BY MOUTH EVERY DAY 10/24 completed Not Available Not Available Not Available ibuprofen 600 mg tablet TAKE 1 BY MOUTH EVERY 6 HOURS NEEDED FOR PAIN 10/24 completed Not Available Not Available Not Available methylpredn isolone 4 mg tablets in a dose pack TAKE 6 TABLETS ON DAY 1 DIRECTED ON PACKAGE AND DECREASE BY 1 TAB EACH DAY FOR A TOTAL OF 6 DAYS 10/24 completed Not Available Not Available Not Available norethindro benitez (contracept carmine) 0.35 mg tablet TAKE 1 TABLET BY MOUTH EVERY DAY 11/25 completed Not Available Not Available Not Available ondansetron 4 mg disintegrat ing tablet DISSOLVE 1 TABLET ON TONGUE EVERY 8 HOURS NEEDED FOR NAUSEA 10/24 completed Not Available Not Available Not Available oxycodone 5 mg tablet TAKE 1 TABLET BY MOUTH EVERY 4 HOURS NEEDED FOR PAIN 10/24 completed Not Available Not Available Not Available Premarin 0.625 mg tablet TAKE 1 TABLET BY MOUTH EVERY DAY 11/22 completed Not Available Not Available Not Available Mandeep (28) 0.4 mg-35 mcg tablet TAKE 1 TABLET BY MOUTH TWICE A DAY FOR 1 WEEK, THEN TAKE ONCE A DAY 11/22 completed Not Available Not Available Not Available magnesium oxide 500 mg capsule TAKE 1 CAPSULE BY MOUTH ONCE DAILY AT [facility] THE SAME TIME EACH DAY.*NOT COVERED 06/04 completed Not Available Not Available Not Available Lo Loestrin Fe 1 mg-10 mcg (24)/10 mcg (2) tablet TAKE 1 TABLET BY MOUTH EVERY DAY FOR 84 DAYS active Not Available Not Available No t Available EC-Naproxen 500 mg tablet,melanie yed release TAKE 1 TABLET BY MOUTH 2 TIMES A DAY NEEDED MENSTRUAL PAIN 10/24 completed Not Available Not Available Not Available Vitals Date Recorded Body height Body mass index (BMI) Body weight Body temperature Heart rate Systolic blood pressure Diastolic blood pressure Provider Name and Address Organization Details Last Updated DateTime 4 166.37 cm 21.7 kg/m2 87435.6 3 g 97.4 [degF] 87 /min 109 mm[Hg] 75 mm[Hg] luzmaria Weir in [facility], 4 09:53:46 Date Recorded Body height Body mass index (BMI) Body weight Heart rate Systolic blood pressure Diastolic blood pressure Provider Name and Address Organization Details Last Updated DateTime 5 166.37 cm 22.5 kg/m2 65057.8 7 g 77 /min 130 mm[Hg] 66 mm[Hg] Shanae Weir in [facility], 5 09:00:46 Date Recorded Body height Provider Name an d Address Organization Details Last Updated DateTime 11/25/2022 166.37 cm Shanae Espinoza in [facility], 11/25/2022 08:31:41 Date Recorded Body height Body mass index (BMI) Body mass index (BMI) [Percentile] Per age and sex Body weight Systolic blood pressure Diastolic blood pressure Provider Name and Address Organization Details Last Updated DateTime 3 166.37 cm 22 kg/m2 52 % 17151.3 8 g 112 mm[Hg] 57 mm[Hg] Anusha Weir in [facility], 3 08:54:53 Date Recorded Body height Body mass index (BMI) Body weight Body temperature Heart rate Systolic blood pressure Diastolic blood pressure Provider Name and Address Organization Details Last Updated DateTime 4 166.37 cm 22.7 kg/m2 01979.1 8 g 98.1 [degF] 84 /min 123 mm[Hg] 74 mm[Hg] Shanea Weir in [facility], 4 10:51:13 Social History Question Answer Notes LastModified by ONOFFMIX (?) Details LastModified Time Tobacco Smoking Status Never Smoker HESHAM Smith in [facility], 11/22/2022 08:37:25 What Is Your Level Of Caffeine Consumption? Occasional Information not available 11/22/2022 In The 14 Days Before Symptom Onset, Have You Had Close Contact With A Laboratory-confir med COVID-19 While That Case Was Ill? No Information not available 11/22/2022 In The 14 Days Before Symptom Onset, Have You Had Close Contact With A Person Who Is Under Investigation For COVID-19 While That Person Was Ill? No Information not available 11/25/2022 Have You Been To An Area Known To Be High Risk For COVID-19? No Information not available 11/22/2022 What Is The Highest Grade Or Level Of School You Have Completed Or The Highest Degree You Have Received? [id number] Information not available 11/22/2022 Who Is Your Employer? [employer] Code. Information not available 11/22/2022 Are There Any Guns Present In Your Home? No Information not available 11/22/2022 To Which Gender Do You Self-identify? Female Information not available 11/22/2022 What Was The Date Of Your Most Recent Tobacco Screening? 10/24/2024 Information not available 10/24/2024 What Is Your Relationship Status? Single Information not available 11/22/2022 Are You Sexually Active? Yes Information not available 11/22/2022 Sex: Female Functional Status Question Answer Note LastModified by EdeniQ ion Details LastModified Time Do you use any illicit or recreational drugs? No Information not available 11/22/2022 Do you or have you ever used any other forms of tobacco or nicotine? No Information not available 11/22/2022 What is your level of alcohol consumption? None Information not available 11/22/2022 Are you currently employed? 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 Occasional Information not available 11/22/2022 Mental Status Question Answer Note LastModified by Organization D etails LastModified Time Do you feel stressed (tense, restless, nervous, or anxious, or unable to sleep at night)? [id number] Information not available 11/22/2022 Family History Relationship Description Onset Age of this Age Resolved Age Notes LastModified by Organization Details LastModified Time Maternal Grandmother Problem great pancre atic [email or web address] Not available 11/22/2022 08:35:45 Paternal Grandfather Malignant tumor of colon also great grandf ather tmeczywor Not available 11/22/2022 08:36:19 Father Malignant tumor of colon precan cer polyps remove d tmeczywor Not available 11/22/2022 08:36:46 Medical History Condition Response Anesthesia complications N High Blood Pressure N Candidate for MyRisk panel N Autoimmune Condition N Lung Disease N Depression N Defects or Inherited Disease N History of Ovarian Cancer N BRCA testing in past N Anxiety Disorder N Arthritis N Infertility N History of Cancer N Endometriosis Y Thyroid Problems N Kidney or Bladder Problems N GI Problems N Anemia N History of Breast Cancer N KOFI exposure N Osteopenia N Psychiatric Illness N Diabetes N Headaches or Migraines N Asthma N Hepatitis N Heart Disease Y Hypertension N Osteoporosis N Gynecological History Statement/Question Response Flow Moderate Date of LMP 10/17/2023 Frequency of Cycle (Q days) 28 Duration of Flow (days) 7 Age at Menarche 18 Current Control Method BCPs Age at First Child Obstetrics History GPAL:G 0 P 0 0 0 0 Immunizations Vaccine Type Date Status Note Provider Nam christoph and Address Organization Details Recorded Time COVID-19 Non-US Vaccine, Product Unknown 05/26/202 1 completed Not Available [facility] 12/22/2022 08:54:01 HPV9 6 completed Shanae [place]ec[place] null, [place] - [facility], 11/25/2022 08:31:59 COVID-19, mRNA, LNP-S, PF, 100 mcg/0.5mL dose or 50 mcg/0.25mL dose 1 completed Shanae Meczywor null, [place] - [facility], 11/25/2022 08:31:59 COVID-19, mRNA, LNP-S, PF, 100 mcg/0.5mL dose or 50 mcg/0.25mL dose 1 completed Shanae Meczywor null, [place] - [facility], 11/25/2022 08:31:59 Tdap 5 completed Shanae Meczywor null, [place] - [facility], 11/25/2022 08:31:59 HPV, quadrivalent 5 completed Shanae Meczywor null, [place] - [facility], 11/25/2022 08:31:59 HPV, quadrivalent 5 completed Shanae Meczywor null, [place] - [facility], 11/25/2022 08:31:59 Hep A, ped/adol, 2 dose 7 completed Shanae Meczywor null, [place] - [facility], 11/25/2022 08:31:59 Hep A, ped/adol, 2 dose 8 completed Shanae Meczywor null, [place] - [facility], 11/25/2022 08:31:59 meningococcal MCV4P 5 completed Shanae Meczywor null, [place] - [facility], 11/25/2022 08:31:59 meningococcal MCV4P 9 completed Shanae Meczywor null, [place] - [facility], 11/25/2022 08:31:59 Influenza, split virus, quadrivalent, PF 9 completed Shanae hutchins [place] - [facility], 11/25/2022 08:31:59 Past Encounters Encounter ID Performer Location Encounter Start Date Encounter Closed Date Diagnosis/Indication Diagnosis SNOMED-CT Code Diagnosis ICD10 Code Diagnosis Note [id number] MD KATELYN Lozada MD [address],[place] [address] [place] [id number] 11/22/2022 08:23:32 11/22/2022 10:09:02 Abnormal uterine bleeding 0885670678 9100 N93.9 [id number] MD KATELYN Lozada MD [address] [facility] [id number] 11/25/2022 08:30:33 11/25/2022 10:51:27 Fatigue 32397439 R53.83 Abnormal u terine bleeding 3885852626 9100 N93.9 Lower abdominal pain 545 80312 R10.30 [id number] MD KATELYN Lozada MD [address] [place] [address],[place] [address] [place] [id number] 12/22/2022 08:49:48 12/22/2022 09:54:47 Subcutaneous contraceptive implant present 170692602 Z30.46 [id number] MD KATELYN Lozada MD [address] [place] [address],[place] [address] [place] [id number] 10/24/2023 09:50:46 10/24/2023 12:06:47 Specialized medical examination 24110801 Z01.419 Venereal d isease screening 174406962 Z11.3 [id number] MD KATELYN Lozada MD [address] [facility] [address] 06/04/2024 10:44:34 06/04/2024 16:03:15 Amenorrhea 90090304 N91.2 [id number] MD KATELYN Lozada MD [address] [facility] [address] [place] [id number] 10/24/2024 08:52:32 10/24/2024 10:38:19 Specialized medical examination 02167722 Z01.419 Venereal d isease screening 419809068 Z11.3 Health Concerns Section Related Observation LastModified by Organization Detai ls LastModified Time None Recorded Concern Status LastModified by Organization Details LastModified Time None Recorded Advance Directives Directive None Recorded Payers Insurance Date Sequence Insurance Name Policy Number Policy [place] Covered Member ID [place] Member ID Guarantor Name 10/24/2024 1 [facility] (PPO) [id number] Tamy Evansmazin [id number] Art Kasey 10/24/2024 1 [facility] (PPO) [id number] 01 Tamy Evansmazin [id number] Art Parks Notes Date Note Type Note Provider Name and Address Organization Details Recorded Time 11/25/2022 text/html This visit is a phone telehealth visit. The patient consented to the visit by phone. The patient was at home at the time of the call and the provider and patient were the only people on the line. I was at [address] [place] [address], [address], [place], at the time of the call. She is concerned because she had had fatigue since she has had the abnormal vaginal bleeding happening, over the past year. She had a CBC done with her prior forestry and wildlife manager a few months ago and she was not anemic, however she feels she has been bleeding a lot since then. She would like blood testing done. She notes she has a generalized lower abdominal discomfort that happens after she eats, for the past several months, she has not discussed this with her PCP yet. Note from 11/22/22: She is here as a new patient for second opinion. she had a Nexplanon placed in 08/01, and for the first 4 to 5 months had amenorrhea after it was placed, but then started having irregular bleeding, and has had irregular bleeding since then. Her SILK SCREEN PRINTING RACKER, Dr. Brittany Barton, had her get a CBC, which was normal, an HCG, which was negative, and a pelvic sonogram which was unremarkable. The endometrium was thin, at 1 mm.She was put on oral premarin 0.625 mg a day, for a month, but it did not improve the irregular bleeding. A month ago she started taking daily norethindrone, but that has not improve the bleeding either.She notes her bleeding can get painful, and she on occasion gets menstrual headaches. She was originally put on the OCP in freshman year of high school due to severe dysmenorrhea, not for control, It used to be so bad I would throw up form the pain. She was switched from one pill to another but had irregular bleeding on both. she never took Lo Loestin.She has a family history of endometriosis.We discussed that her endometrium may actually be very thin and this may be contributing to the bleeding. The Premarin did not improve the bleeding, however. She would like to switch from this form of control as she is tired of the abnormal bleeding. We discussed options and she would like to try the lo loestrin, and ther reasoning why this may work, will add this in now and have her return for Nexplanon removal. She understands that this may not control the abnormal bleeding either, there is no guarantee. If this does not then the next try would be for depo provera. She is reassured that her prior forestry and wildlife manager did do everything in the right order, her case is just challenging. Katelyn Gaines MD [address], [place], [phone], [facility], 11/25/2022 09:18:57 12/22/2022 text/html She is here for Nexplanon removal. She has bene on the lo loestrin for a month and notes a great improvement in her moods, and the abnormal bleeding stopped for a week, she had a few days of bleeding, and has now stopped for the past 10 days, so she is happy about that. It is the longest she has gone without bleeding for many months. She is tolerating te pills well and remembering to take them daily, and the discount card brought the cost down to $25 for 3 months, which is affordable. Katelyn Gaines MD [address], [place], [id number], [facility], 12/22/2022 09:45:21 10/24/2023 text/html She is here for annual, this is her first annual here. She had her Nexplanon removed in 12/31, is doing well on the lo loestrin, no abnormal bleeding. Menses last 7 days of light to moderate bleeding, never heavy. Katelyn Gaines MD [address] [facility],[address], [place], [phone], [place] [facility], 10/24/2023 10:31:26 06/04/2024 text/html She is here to discuss her abnormal vaginal bleeding pattern. She is concerned because she has had so many problems in the past. We had removed her Nexplanon in 12/31 and switched her to te lo loestrin. She notes that her abnormal bleeding resolved immediately and she was having regular, light meses monthly. However she missed her menses in April entirely, and the period in May was only 2 days of light spotting, that happened at the right time of the cycle in her pill pack.No pelvic pain.The bleeding was 05/29 and 05/30, no bleeding since then. She has not missed any pills. She did a few home tests, all negative. Note from 11/30: She is here as a new patient for second opinion. she had a Nexplanon placed in 08/01, and for the first 4 to 5 months had amenorrhea after it was placed, but then started having irregular bleeding, and has had irregular bleeding since then. Her SILK SCREEN PRINTING RACKER, Dr. Brittany Barton, had her get a CBC, which was normal, an HCG, which was negative, and a pelvic sonogram which was unremarkable. The endometrium was thin, at 1 mm.She was put on oral premarin 0.625 mg a day, for a month, but it did not improve the irregular bleeding. A month ago she started taking daily norethindrone, but that has not improve the bleeding either.She notes her bleeding can get painful, and she on occasion gets menstrual headaches. She was originally put on the OCP in freshman year of high school due to severe dysmenorrhea, not for control, It used to be so bad I would throw up form the pain. She was switched from one pill to another but had irregular bleeding on both. she never took Lo Loestin.She has a family history of endometriosis.We discussed that her endometrium may actually be very thin and this may be contributing to the bleeding. The Premarin did not improve the bleeding, however. She would like to switch from this form of control as she is tired of the abnormal bleeding. We discussed options and she would like to try the lo loestrin, and ther reasoning why this may work, will add this in now and have her return for Nexplanon removal. She understands that this may not control the abnormal bleeding either, there is no guarantee. If this does not then the next try would be for depo provera. She is reassured that her prior forestry and wildlife manager did do everything in the right order, her case is just challenging. Katelyn Gaines MD [address] [place] [address],[address], [place], [phone], [place] - [facility], 06/04/2024 11:40:01 10/24/2024 text/html She is here for annual, doing well on the Lo Loestrin, has no menses, no dysmenorrhea, is very happy. _ Note from 06/03: She is here to discuss her abnormal vaginal bleeding pattern. She is concerned because she has had so many problems in the past. We had removed her Nexplanon in 12/31 and switched her to te lo loestrin. She notes that her abnormal bleeding resolved immediately and she was having regular, light meses monthly. However she missed her menses in April entirely, and the period in May was only 2 days of light spotting, that happened at the right time of the cycle in her pill pack.No pelvic pain.The bleeding was 05/29 and 05/30, no bleeding since then.She has not missed any pills.She did a few home tests, all negative. Note from 11/30:She is here as a new patient for second opinion. she had a Nexplanon placed in 08/01, and for the first 4 to 5 months had amenorrhea after it was placed, but then started having irregular bleeding, and has had irregular bleeding since then. Her SILK SCREEN PRINTING RACKER, Dr. Brittany Barton, had her get a CBC, which was normal, an HCG, which was negative, and a pelvic sonogram which was unremarkable. The endometrium was thin, at 1 mm.She was put on oral premarin 0.625 mg a day, for a month, but it did not improve the irregular bleeding. A month ago she started taking daily norethindrone, but that has not improve the bleeding either.She notes her bleeding can get painful, and she on occasion gets menstrual headaches. She was originally put on the OCP in freshman year of high school due to severe dysmenorrhea, not for control, It used to be so bad I would throw up form the pain. She was switched from one pill to another but had irregular bleeding on both. she never took Lo Loestin.She has a family history of endometriosis.We discussed that her endometrium may actually be very thin and this may be contributing to the bleeding. The Premarin did not improve the bleeding, however. She would like to switch from this form of control as she is tired of the abnormal bleeding. We discussed options and she would like to try the lo loestrin, and ther reasoning why this may work, will add this in now and have her return for Nexplanon removal. She understands that this may not control the abnormal bleeding either, there is no guarantee. If this does not then the next try would be for depo provera. She is reassured that her prior forestry and wildlife manager did do everything in the right order, her case is just challenging. Katelyn Gaines MD [address] [facility],[address], [place], [phone], [place] - [facility], 10/24/2024 09:30:21 OBGyn Episode No OBEpisode recorded.
== END 2024-12-24 11:49 | disposition home or self-care (01) ==
LOC: HO.HMCFM 10:57
PROVIDERS: PCP Nurse Practitioner Family; Visit Provider Nurse Practitioner Family
DX: Z00.00 Encounter for general adult medical examination without abnormal findings (principal); S61.215A Laceration without foreign body of left ring finger without damage to nail, initial encounter; Z76.89 Persons encountering health services in other specified circumstances; Z80.0 Family history of malignant neoplasm of digestive organs; F17.290 Nicotine dependence, other tobacco product, uncomplicated

== ENCOUNTER → 2024-12-24 10:56 | Outpatient (BNVA) | payer OTHER, SELFPAY | PROVIDERS: PCP Nurse Practitioner Family; Visit Provider Nurse Practitioner Family | DX: Z00.00 Encounter for general adult medical examination without abnormal findings (principal); N94.6 Dysmenorrhea, unspecified; M22.42 Chondromalacia patellae, left knee; R51.9 Headache, unspecified; Z80.0 Family history of malignant neoplasm of digestive organs; F17.290 Nicotine dependence, other tobacco product, uncomplicated; S61.215D Laceration without foreign body of left ring finger without damage to nail, subsequent encounter; X58.XXXD Exposure to other specified factors, subsequent encounter; Z76.89 Persons encountering health services in other specified circumstances; Z87.898 Personal history of other specified conditions | CPT/HCPCS: 96127 ==

== ENCOUNTER 2025-01-01 10:46 | Outpatient (AMB) | payer OTHER, SELFPAY ==
--- NOTE | 2025-01-01 10:53 | A.OFFPC_ITS ---
Vital Signs 01/01/25 10:55 Height 5 ft 5 in Weight 139 lb BMI 23.1 BP 108/66 Blood Pressure Location Lt brachial Position Sitting Respiration 12 Pulse 59 Pulse Source Pulse Oximeter Temp 97.2 F Temp Source Oral Pulse Oximetry (%) 99 Oxygen Delivery Method Room Air Intake Visit Reasons: Tues with me suture removal Intake Note: Suture removal Features Reporter Required: No Allergies Penicillins Allergy (Severe, Verified 01/01/25 10:54) Hives Medication List - Last Reconciled 01/01/25 by MARY Luke-JEM norethindrone-e.estradiol-iron 1 mg-10 mcg (24)/10 mcg (2) (Lo Loestrin Fe) 1 tab PO DAILY Tobacco use date assessed: 12/24/24 Dental Screening Dental Screen Date: 12/24/24 HPI HPI Comments History of Present Illness Details 24 y/o F here today to suture removal L index finger Offers no complaints 7 sutures successfully removed from L in dex finger w/o incident edges well approx cleansed, 3 steristrips and band aid applied After care instructions including s/sx of infection provided. RTO as scheduled, sooner prn PFSH Medical History (Updated 01/01/25 @ 14:06 by MARY Luke-JEM) No pertinent family history No pertinent past medical history Surgical History (Updated 12/24/24 @ 11:07 by Katerina Gates MA) No pertinent past surgical history Social History (Updated 12/24/24 @ 11:07 by Katerina Gates MA) Household Members: Family Household Members Other:: Parents Housing: House Are you a primary career development coordinator/teacher to a significant other at home: No Do you presently have visiting nurse or other home services: No Alcohol intake: current Alcohol intake frequency: a few times a month Patient Tobacco Use Status: Never used Tobacco e-Cigarette/Vaping Use: Never Used Second Hand Smoke Exposure: No Current occupational status: employed 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 Cognitive needs: No Hearing needs: No Vision needs: No Questionnaire Thrive Questionnaire Date Thrive assessed: 12/24/24 I am a: Patient What is your living situation today?: I have a steady place to live Within the past 12 months, did the food you bought not last and you didn't have the money to get more?: Never true Within the past 12 months, did you worry whether your food would run out before you got money to buy more?: Never true Do you have trouble paying for medicines?: No Do you have trouble getting transportation to medical appointments?: No Do you have trouble paying your heating and electricity bill?: No Do you have trouble taking care of your child, family member or friend?: No Do you have trouble with day-to-day activities such as bathing, preparing meals, shopping, managing finances, etc.?: No Are you currently unemployed and looking for a job?: No Are you interested in more education?: No Please select the resources that you would like help with: None Currently or been in a relationship where the following occur: No concerns reported THRIVE Score: 0 MAXINE-7 AMB Questionnaire MAXINE-7 Date MAXINE - 7 assessed: 12/24/24 Source: Developed by Drs. Perry Watkins, Fatuma Crockett, Girma Kurtz and colleagues, with an educational milan from [employer]. Physical exam (Primary Care) Vital Signs: Last Vital Signs Temp 97.2 F 01/01/25 10:55 Pulse 59 01/01/25 10:55 Resp 12 01/01/25 10:55 BP 108/66 01/01/25 10:55 Pulse Ox 99 01/01/25 10:55 Oxygen Delivery Method Room Air 01/01/25 10:55 BMI result Body Mass Index 23.1 Tobacco/Smoking Status: Tobacco use Status Tobacco use date assessed 12/24/24 01/01/25 10:57 Patient Tobacco Use Status Never used Tobacco 01/01/25 10:57 e-Cigarette/Vaping Use Never Used 01/01/25 10:57 Thrive Assessment: Date of Thrive Assessment Date Thrive assessed 12/24/24 01/01/25 10:57 Currently or been in a relationship where the following occur: No concerns reported Coding Level of Care Code Est Pt Level 4 (35021) Complex EM visit Add On G2211 Diagnoses Visit for suture removal Z48.02 Laceration of left ring finger without foreign body without damage to nail, initial encounter S61.215A Encounter type: initial encounter Finger: ring finger Damage to nail status: without damage Foreign body presence: without foreign body Laterality: left Assessment & Plan Assessment & Plan (1) Visit for suture removal: Code(s): Z48.02 - Encounter for removal of sutures Category: Medical (2) Finger laceration: Code(s): S61.219A - Laceration without foreign body of unspecified finger without damage to nail, initial encounter Category: Medical Qualifiers: Encounter type: initial encounter Finger: ring finger Damage to nail status: without damage Foreign body presence: without foreign body Laterality: left Qualified Code(s): S61.215A - Laceration without foreign body of left ring finger without damage to nail, initial encounter Plan .
[2025-01-01 10:55] VITALS: BP 108/66; PULSE 59; RESP 12; TEMP 36.2; O2SAT 99; BMI 23.1
--- OUTSIDE RECORDS SUMMARY | 2025-01-01 12:08 | XMS_ITS | Data Portability ---
Author Organization [place] - [facility],, KATELYN GAINES MD Address [address] [address] Care Team Providers Care Maintenance Person Name Role Phone [facility] Primary Care Provider Assessment No assessment recorded. Plan of Treatment [...] Go To The Location Of Their Choice, 10/29/2024 14:20:21 cytology report, thin prep, smear or scraping, cervical or vaginal 2023 024 [facility] (Centralized Electronic Ordering - All Locations), Patient Can Go To The Location Of Their Choice, 10/27/2023 12:06:43 beta-HCG, qualitati ve, serum or plasma 2022 023 [facility] (Centralized Electronic Ordering - All Locations), Patient Can Go To The Location Of Their Choice, 12/02/2022 07:29:19 prolactin , serum 2022 023 [facility] (Centralized Electronic Ordering - All Locations), Patient Can Go To The Location Of Their Choice, 12/02/2022 07:29:19 TSH, serum or plasma 2022 023 [facility] (Centralized Electronic Ordering - All Locations), Patient Can Go To The Location Of Their Choice, [id number] 12/02/2022 07:29:18 CBC w/ auto diff 2022 023 [facility] (Centralized Electronic Ordering - All Locations), Patient Can Go To The Location Of Their Choice, [id number] 12/02/2022 07:29:19 lyme disease igg+igm, serum, reflex western blot 2022 023 [facility] (Centralized Electronic Ordering - All Locations), Patient Can Go To The Location Of Their Choice, [id number] 12/02/2022 07:29:19 Referral None recorded. Procedures removal, implantab le contracep tive (PROC) 2022 023 [facility] In-Office Order, Internal Use Only DO Not Attach Compendium DO Not Attach Compendium, Do Not Delete/merge, [id number] 12/22/2022 09:47:39 Surgeries None recorded. Imaging None recorded. Medication Orders Lo Loestrin Fe 1 mg-10 mcg (24)/10 mcg (2) tablet [address] [facility] #[id number], [address] [place], [address], 10/24/2024 09:29:50 Lo Loestrin Fe 1 mg-10 mcg (24)/10 mcg (2) tablet [address] [facility] #[id number], [address] [place], [address], 10/24/2023 10:30:59 Patient TargetsNo targets recorded. Patient Instructions Encounter Date Encounter Id Patient Instructions Last Modified By Organization Details Last Modified Time 11/25/2022 [id number] This visit is a phone telehealth visit. The patient consented to the visit by phone. The patient was at home at the time of the call and the provider and patient were the only people on the line. I was at [address] [place] [address], [address], [place], at the time of the call. She is concerned because she had had fatigue since she has had the abnormal vaginal bleeding happening, over the past year. She had a CBC done with her prior director of labor and delivery a few months ago and she was [...] has had irregular bleeding since then. Her BRUSH FABRICATION SUPERVISOR, Dr. Brittany Barton, had her get a [...] provera. She is reassured that her prior director of labor and delivery did do everything in the right order, [...] 30 minutes Not available 11/25/2022 09:18:37 12/22/2022 [id number] She is here for Nexplanon removal. She [...] care discussed. Not available 12/22/2022 09:43:37 10/24/2023 [id number] learning about healthy weight [email or web address] Not available 10/24/2023 10:30:42 She is here [...] rx to be called in to pharmacy. alan Not available 10/24/2023 10:31:10 06/04/2024 [id number] secondary amenorrhea: care instructions alan Not available 06/04/2024 11:11:57 She is here [...] has had irregular bleeding since then. Her BRUSH FABRICATION SUPERVISOR, Dr. Brittany Barton, had her get a [...] provera. She is reassured that her prior director of labor and delivery did do everything in the right order, [...] minutes alan Not available 06/04/2024 11:39:46 10/24/2024 [id number] learning about healthy weight alan Not available [...] has had irregular bleeding since then. Her BRUSH FABRICATION SUPERVISOR, Dr. Brittany Barton, had her get a [...] provera. She is reassured that her prior director of labor and delivery did do everything in the right order, [...] rx to be called in to pharmacy. [email or web address] Not available 10/24/2024 09:30:07 Reason for Referral None Reported. Results Created Date Observation Date Name Description Value Unit Range Abnormal Flag Note LastModifiedBy Organization Detail LastModifiedTime 12/23/1912/22/2022 remov al, impla ntabl e contr acept carmine (PROC ) device intact Not Available In-Office Order Internal Use Only DO Not Attach Compendium DO Not Attach Compendium, Do Not Delete/merge, [id number] 12/22/2022 08:53:38 10/24/19 24 10/26/2023 IGP, CTNG, RFX APTIM A HPV ASCU chlamydia, nuc. acid amp Negati ve negati ve Not Available [facility] ([facility]) [address] [place], [address], 10/27/2023 12:06:43 10/24/19 24 10/26/2023 IGP, CTNG, RFX APTIM A HPV ASCU gonococcus, nuc. acid amp Negati ve negati ve Not Available [facility] ([facility]) [address] [place], [address], 10/27/2023 12:06:43 10/24/19 24 10/27/2023 IGP, CTNG, RFX APTIM A HPV ASCU diagnosis: Commen t NEGAT CARMINE FOR INTRA EPITH ELIAL LESIO N OR MALIG MICHELLE . FUNGA L ORGAN ISMS MORPH OLOGI OLAMIDE CONSI STENT WITH JONATHAN DA SPECI ES ARE PRESE NT. Not Available [facility] ([facility]) [address] [place], [address], 10/27/2023 12:06:43 10/24/19 24 10/27/2023 IGP, CTNG, RFX APTIM A HPV ASCU specimen adequacy: Tye nunn Satis ron torres for evalu ation . Endoc ervic al and/o r squam ous metap lasti c cells (endo cervi tyrese compo nent) are prese nt. Not Available [facility] ([facility]) [address] [place], [address], 10/27/2023 12:06:43 10/24/19 24 10/27/2023 IGP, CTNG, RFX APTIM A HPV ASCU clinician provided ICD10: Tye nunn Z01.4 19 Not Available [facility] ([facility]) [address] [place], [address], 10/27/2023 12:06:43 10/24/19 24 10/27/2023 IGP, CTNG, RFX APTIM A HPV ASCU performed by: Ale Hull (ASCP ) Not Available [facility] ([facility]) [address] [place], [address], 10/27/2023 12:06:43 10/24/19 24 10/27/2023 IGP, CTNG, RFX APTIM A HPV ASCU . . Not Available [facility] ([facility]) [address] [place], [address], 10/27/2023 12:06:43 10/24/19 24 10/27/2023 IGP, CTNG, [...] ts do occur . Not Available [facility] ([facility]) [address] [place], [address], 10/27/2023 12:06:43 10/24/19 24 10/27/2023 IGP, CTNG, RFX APTIM A HPV ASCU test methodology: TNP The Thin Prep( R) Image r was unabl e to read this speci men. There fore a manua l revie w was perfo rmed. Not Available [facility] ([facility]) [address] [place], [address], 10/27/2023 12:06:43 10/24/19 24 10/27/2023 IGP, CTNG, RFX APTIM A HPV ASCU . Commen t The HPV DNA refle x crite nohemi were not met with this speci men resul t there fore, no HPV testi ng was perfo rmed. Not Available [facility] ([facility]) [address] [place], [address], 10/27/2023 12:06:43 10/25/19 25 10/25/2024 IGP, CTNG, RFX APTIM A HPV ASCU chlamydia, nuc. acid amp Negati ve negati ve Not Available [facility] ([facility]) [address] [place], [address], 10/29/2024 14:20:21 10/25/19 25 10/25/2024 IGP, CTNG, RFX APTIM A HPV ASCU gonococcus, nuc. acid amp Negati ve negati ve Not Available [facility] ([facility]) [address] [place], [address], 10/29/2024 14:20:21 10/25/19 25 10/29/2024 IGP, CTNG, RFX APTIM A HPV ASCU diagnosis: Commen t NEGAT CARMINE FOR INTRA EPITH ELIAL LESIO N OR MALIG MICHELLE . FUNGA L ORGAN ISMS MORPH OLOGI OLAMIDE CONSI STENT WITH JONATHAN DA SPECI ES ARE PRESE NT. Not Available [facility] ([facility]) [address] [place], [address], 10/29/2024 14:20:21 10/25/19 25 10/29/2024 IGP, CTNG, RFX APTIM A HPV ASCU specimen adequacy: Commen t Satis facto ry for evalu ation . Endoc ervic al and/o r squam ous metap lasti c cells (endo cervi tyrese compo nent) are prese nt. Not Available [facility] ([facility]) [address] [place], [address], 10/29/2024 14:20:21 10/25/19 25 10/29/2024 IGP, CTNG, RFX APTIM A HPV ASCU clinician provided ICD10: Tye t Z01.4 19 Not Available [facility] ([facility]) [address] [place], [address], 10/29/2024 14:20:21 10/25/19 25 10/29/2024 IGP, CTNG, RFX APTIM A HPV ASCU performed by: Tye t Danny Wilson , Cytol ogist (ASCP ) Not Available [facility] ([facility] [address] [place], [address], 10/29/2024 14:20:21 10/25/19 25 10/29/2024 IGP, CTNG, RFX APTIM A HPV ASCU . . Not Available [facility] ([facility] [address] [place], [address], 10/29/2024 14:20:21 10/25/19 25 10/29/2024 IGP, CTNG, [...] ts do occur . Not Available [facility] ([facility]) [address] [facility], [place], [address], 10/29/2024 14:20:21 10/25/19 25 10/29/2024 IGP, CTNG, RFX APTIM A HPV ASCU test methodology: Comm t This liqui d based ThinP rep(R ) pap test was scree samir with the use of an image guide d systchristoph m. Not Available [facility] ([facility]) [address] [facility], [place], [address], 10/29/2024 14:20:21 10/25/19 25 10/29/2024 IGP, CTNG, RFX APTIM A HPV ASCU . Commen t The HPV DNA refle x crite nohemi were not met with this speci men resul t there fore, no HPV testi ng was perfo rmed. Not Available [facility] ([facility] [address] [place], [address], 10/29/2024 14:20:21 11/23/19 23 11/26/2022 US, pelvi s, trans abdom inal + trans vagin al No observ ation record ed. BARCODE Not Available 2022 08:53:22 Result Notes None recorded. Problems No Known Problems Procedures Surgical History Date Name Laterality Status Provider Name and Address Organization Details Recorded Time 3 Implanon Removal completed Katelyn Gaines MD [address] [facility],[address], [place], [address], [place] [facility], 12/22/2022 09:44:40 Imaging Results None recorded. Procedure Notes None recorded. Medical Equipment None Reported. Allergies Allergen ID Allergen Name Allergen Category Reaction Reaction Severity Criticality Documentation Date Start Date Code Code System Note Provider Name and Address Organization Details Recorded Time 66537 Product containin g penicilli n (product) medicatio n hives Not available Not available 11/22/2022 66509 8001 SNOMED Shanae Adma hutchins [place] - [facility], 3 08:32:19 Medications Name Sig Start [...] completed Not Available Not Available Not Available norethindjerry marquis (contracept carmine) 0.35 mg tablet TAKE 1 [...] 1 CAPSULE BY MOUTH ONCE DAILY AT [facility] THE SAME TIME EACH DAY.*NOT [...] Updated DateTime 4 166.37 cm 21.7 kg/m2 11747.6 3 g 97.4 [degF] 87 /min 109 mm[Hg] 75 mm[Hg] luzmaria Weir in [facility], 4 09:53:46 Date Recorded Body height Body mass index (BMI) Body weight Heart rate Systolic blood pressure Diastolic blood pressure Provider Name and Address Organization Details Last Updated DateTime 5 166.37 cm 22.5 kg/m2 34683.8 7 g 77 /min 130 mm[Hg] 66 mm[Hg] Shanae Weir in [facility], 5 09:00:46 Date Recorded Body height Provider Name an d Address Organization Details Last Updated DateTime 11/25/2022 166.37 cm Shanae Espinoza in [facility], 11/25/2022 08:31:41 Date Recorded Body height Body mass index (BMI) Body mass index (BMI) [Percentile] Per age and sex Body weight Systolic blood pressure Diastolic blood pressure Provider Name and Address Organization Details Last Updated DateTime 3 166.37 cm 22 kg/m2 52 % 61422.3 8 g 112 mm[Hg] 57 mm[Hg] Anusha Weir in [facility], 3 08:54:53 Date Recorded Body height Body mass index (BMI) Body weight Body temperature Heart rate Systolic blood pressure Diastolic blood pressure Provider Name and Address Organization Details Last Updated DateTime 4 166.37 cm 22.7 kg/m2 41052.1 8 g 98.1 [degF] 84 /min 123 mm[Hg] 74 mm[Hg] Shanae Weir in [facility], 4 10:51:13 Social History Question Answer Notes LastModified by Graffle ion Details LastModified Time Tobacco Smoking Status Never Smoker [place] Smith in [facility], 11/22/2022 08:37:25 What Is Your Level Of [...] Or The Highest Degree You Have Received? [id number] Information not available 11/22/2022 Who Is Your Employer? [employer]. Information not available 11/22/2022 Are There Any [...] Functional Status Question Answer Note LastModified by Organizat ion Details LastModified Time Do you use [...] anxious, or unable to sleep at night)? CT0351-2 Information not available 11/22/2022 Family History Relationship [...] for MyRisk panel N Autoimmune Condition N Kidney or Bladder Problems N Thyroid Problems N Depression N Lung Disease N GI Problems N Defects or Inherited Disease N Anemia N History of Ovarian Cancer N History of Breast Cancer N KOFI exposure N BRCA testing in past N Osteopenia N Psychiatric Illness N Anxiety Disorder N Diabetes N Arthritis N Headaches or Migraines N Infertility N Asthma N History of Cancer N Endometriosis Y Hepatitis N Heart Disease Y Hypertension N [...] Product Unknown 05/26/202 1 completed Not Available [facility] 12/22/2022 08:54:01 HPV9 6 completed Shanae Meczywor [...] Shanae hutchins [place] - [facility], 11/25/2022 08:31:59 Past Encounters Encounter ID Performer Location Encounter Start Date Encounter Closed Date Diagnosis/Indication Diagnosis SNOMED-CT Code Diagnosis ICD10 Code Diagnosis Note [id number] MD KATELYN Lozada MD [address] [address] [place] [address] 11/22/2022 08:23:32 11/22/2022 10:09:02 Abnormal uterine bleeding 8693839527 9100 N93.9 [id number] MD KATELYN Lozada MD [address] [facility] [address] 11/25/2022 08:30:33 11/25/2022 10:51:27 Fatigue 72151927 R53.83 Abnormal u terine bleeding 5475620991 9100 N93.9 Lower abdominal pain 545 27732 R10.30 [id number] MD KATELYN Lozada MD [address] [facility] [address] [place] [address] 12/22/2022 08:49:48 12/22/2022 09:54:47 Subcutaneous contraceptive implant present 879783978 Z30.46 [id number] MD KATELYN Lozada MD [address] [place] [address],[place] [address] [place] [address] 10/24/2023 09:50:46 10/24/2023 12:06:47 Specialized medical examination 29810025 Z01.419 Venereal d isease screening 084158571 Z11.3 [id number] MD KATELYN Lozada MD [address] [facility] [address] 06/04/2024 10:44:34 06/04/2024 16:03:15 Amenorrhea 47795555 N91.2 [id number] MD KATELYN Lozada MD [address] [facility] [address] [place] [address] 10/24/2024 08:52:32 10/24/2024 10:38:19 Specialized medical examination 90900975 Z01.419 Venereal d isease screening 228453566 Z11.3 Health Concerns Section Related Observation LastModified by Organization Detai ls LastModified Time None Recorded Concern Status LastModified by Organization Details LastModified Time None Recorded Advance Directives Directive None Recorded Payers Insurance Date Sequence Insurance Name Policy Number Policy [place] Covered Member ID [place] Member ID Guarantor Name 10/24/2024 1 [facility] (PPO) [id number] Tamy Evansmazin [id number] Art Kasey 10/24/2024 1 [facility] (PPO) [id number] 01 Tamy Kasey [id number] Art Parks Notes Date Note Type Note Provider Name and Address Organization Details Recorded Time 11/25/2022 text/html This visit is a phone telehealth visit. The patient consented to the visit by phone. The patient was at home at the time of the call and the provider and patient were the only people on the line. I was at [address] [place] [address], [address], [place], at the time of the call. She is concerned because she had had fatigue since she has had the abnormal vaginal bleeding happening, over the past year. She had a CBC done with her prior director of labor and delivery a few months ago and she was [...] has had irregular bleeding since then. Her BRUSH FABRICATION SUPERVISOR, Dr. Brittany Barton, had her get a [...] provera. She is reassured that her prior director of labor and delivery did do everything in the right order, her case is just challenging. Katelyn Gaines MD [address], [place], [address], [facility], 11/25/2022 09:18:57 12/22/2022 text/html She is here [...] which is affordable. Katelyn Gaines MD [address], [place], [address], [facility], 12/22/2022 09:45:21 10/24/2023 text/html She is here for annual, this is her first annual here. She had her Nexplanon removed in 12/31, is doing well on the lo loestrin, no abnormal bleeding. Menses last 7 days of light to moderate bleeding, never heavy. Katelyn Gaines MD [address] [facility],[address], [place], [address], [place] - [facility], [...] has had irregular bleeding since then. Her BRUSH FABRICATION SUPERVISOR, Dr. Brittany Barton, had her get a [...] provera. She is reassured that her prior director of labor and delivery did do everything in the right order, her case is just challenging. Katelyn Gaines MD [address] [facility],[address] [place] [facility] [address], [place] [facility], [...] has had irregular bleeding since then. Her BRUSH FABRICATION SUPERVISOR, Dr. Brittany Barton, had her get a [...] provera. She is reassured that her prior director of labor and delivery did do everything in the right order, her case is just challenging. Katelyn Gaines MD [address] [facility],[address], [place], [address], [place] [facility], 10/24/2024 09:30:21 OBGyn Episode No OBEpisode recorded.
== END 2025-01-01 11:24 | disposition home or self-care (01) ==
LOC: HO.HMCFM 10:47
PROVIDERS: PCP Nurse Practitioner Family; Visit Provider Nurse Practitioner Family
DX: Z48.02 Encounter for removal of sutures (principal); S61.215A Laceration without foreign body of left ring finger without damage to nail, initial encounter

== ENCOUNTER → 2025-01-01 10:46 | Outpatient (BNVA) | payer OTHER, SELFPAY | PROVIDERS: PCP Nurse Practitioner Family; Visit Provider Nurse Practitioner Family | DX: Z13.89 Encounter for screening for other disorder (principal) ==

== ENCOUNTER 2025-01-01 11:14 | Outpatient (REF) | payer OTHER, SELFPAY ==
[2025-01-01 14:08] LABS: Hematocrit 39.5 % (37.0-47.0); Hemoglobin 13.7 g/dl (12.0-16.0); Mean Corpuscular HGB Conc 34.7 g/dl (31.0-35.0); Mean Corpuscular Volume 86.6 fL (80.0-98.0); Mean Platelet Volume 10.4 fL (9.4-12.3); Platelet Count 240 X10*3/uL (160-400); Red Blood Count 4.56 X10*6/uL (4.20-5.50); Red Cell Distribution Width 12.6 % (11.0-16.0); White Blood Count 5.6 X10*3/uL (4.8-10.8)
[2025-01-01 14:43] LABS: Estimated Average Glucose 88 mg/dL; Hemoglobin A1C 103.3911 umol/L; Hemoglobin A1c % 4.7 % (<6.0); Total Hemoglobin (HGBA1C) 3650.9583 umol/L
[2025-01-01 14:46] LABS: Alanine Aminotransferase 15 U/L (0-31); Albumin Level 4.3 g/dL (3.5-5.0); Alkaline Phosphatase 43 U/L (39-117); Anion Gap 11 (12-20); Aspartate Amino Transferase 21 U/L (5-31); Bilirubin Total 0.6 mg/dL (0.0-1.0); Blood Urea Nitrogen 9 mg/dL (9-16); Calcium 9.2 mg/dL (8.4-10.2); Carbon Dioxide 22 mmol/L (22-29); Chloride 111 mmol/L (96-108); Cholesterol 153 mg/dL (<200); Estimated Glomerular Filt Rate > 60; Ferritin 77 ng/mL (10-122); Glucose Random 89 mg/dL (60-115); HDL Cholesterol 58 mg/dL (>40); LDL Cholesterol Calculated 76 mg/dL (<100); Potassium 3.5 mmol/L (3.3-5.1); Sodium 140 mmol/L (135-145); TSH reflex Free T4 0.69 uIU/mL (0.32-4.0); Total Protein 6.9 g/dL (6.5-8.0); Triglycerides 99 mg/dL (<150); Vitamin D 25-OH Total 38.7 ng/mL (>30)
[2025-01-01 14:54] LABS: Folate 10.8 ng/mL (> or = 4.0); Vitamin B12 173 pg/mL (200-900)
[2025-01-01 15:07] LABS: Creatinine Urine 159.06 mg/dL; Microalbum/Creatinine Ratio Ur 5.6 ug/mg cr (<30)
== END 2025-01-01 11:15 | disposition home or self-care (01) ==
LOC: HO.WFDLDS 11:14
PROVIDERS: Visit Provider Nurse Practitioner Family
DX: Z00.00 Encounter for general adult medical examination without abnormal findings (principal); Z13.1 Encounter for screening for diabetes mellitus; Z13.6 Encounter for screening for cardiovascular disorders; S61.215A Laceration without foreign body of left ring finger without damage to nail, initial encounter
CPT/HCPCS: 36415; 80053; 80061; 82043; 82306; 82570; 82607; 82728; 82746; 83036; 84443; 85027

== ENCOUNTER 2025-01-28 20:37 | Emergency (ER) | payer OTHER, SELFPAY ==
--- OUTSIDE RECORDS SUMMARY | 2022-07-16 14:39 | XMS_ITS | Encounter Summary ---
Author Organization [facility] Address [address] [place] [address] Phone Care Team Providers Care Environmental Inspector Name Role Phone Pcp, Unknown Primary Care Provider Unavailabl e Encounter Details Date Type Department Care Team (Late st Contact Info) Description 07/16/2022 1:39 PM EST Hospital Encounter [facility] [address] [place] [phone] Gisell Doan FNP [address] [place] [address] [email or web address] Social History Tobacco Use Types [...] reportoriginally created by Stanley Stanley. Gisell Doan JUNIOR SOFTWARE DEVELOPER IMG XR LOWER EXTREMITY Camille l Result documented in this encounter Visit Diagnoses Not on filedocumented in this encounter Care Teams Environmental Inspector Relationship Specialty Start Date End Date Pcp, Unknown PCP - General 07/16/22 documented as of this encounter Additional Source Comments The information contained in this document represents components of the legal health record. It is not the complete legal health record.[facility]
[2025-01-28 21:14] VITALS: BP 129/79; PULSE 75; RESP 18; TEMP 36.6; O2SAT 98; BMI 23.4
[2025-01-28 21:50] LABS: MANUAL DIFF FLAG NO
[2025-01-28 21:55] LABS: Hematocrit 39.4 % (37.0-47.0); Hemoglobin 14.0 g/dl (12.0-16.0); Imm Gran Abs Auto 0.02 X10*3/uL (0.00-0.03); Imm Gran Pct Auto 0.3 % (0.0-0.4); Lymphocytes Absolute Auto 2.2 X10*3/uL (1.2-4.9); Mean Corpuscular HGB Conc 35.5 g/dl (31.0-35.0); Mean Corpuscular Hemoglobin 30.4 pg (27.0-33.0); Mean Corpuscular Volume 85.5 fL (80.0-98.0); NRBC Abs Auto 0.000 X10*3/uL (0.0-0.012); NRBC Pct Auto 0.0 /100WBC (0.0-0.2); Platelet Count 244 X10*3/uL (160-400); Red Blood Count 4.61 X10*6/uL (4.20-5.50); White Blood Count 7.8 X10*3/uL (4.8-10.8)
[2025-01-28 21:57] LABS: Appearance Urine Clear; Glucose Urine UA Negative (Negative); PH 7.0 (5.0-9.0); Specific Gravity - Urine <= 1.005 (1.005-1.025); UMIC TRIGGER UACC YES
[2025-01-28 22:10] LABS: Anion Gap 8 (12-20); Blood Urea Nitrogen 7 mg/dL (9-16); Calcium 8.9 mg/dL (8.4-10.2); Carbon Dioxide 24 mmol/L (22-29); Chloride 110 mmol/L (96-108); Creatinine Clr Calc Pharmacy 118.5; Estimated Glomerular Filt Rate > 60; Lipase 20 U/L (8-78); Potassium 3.7 mmol/L (3.3-5.1); Sodium 138 mmol/L (135-145)
--- OUTSIDE RECORDS SUMMARY | 2025-01-29 01:16 | XMS_ITS | Encounter Summary ---
Author Organization [facility] Address [address] [place] [address] Phone Care Team Providers Care Paper Cutter Operator Name Role Phone Ashlyn Galeano NP Primary Care Provider [phone] Reason for Visit * Reason Comments Med Refill Encounter Details Date Type Department Care Team (Late st Contact Info) Description 06/29/2023 Refill [facility] [address] [place] [id number] Ashlyn Galeano NP [address], [place] [id number] Other headache syndrome Social History Tobacco Use Types Packs/Day Years Used Date Smoking Tobacco: Never Smokeless Tobacco: Never Alcohol Use Standard Drinks/Week Comments Never 0 (1 standard drink = 0.6 oz pur e alcohol) Hunger/Food Answer Date Recorded In the last 12 months, did y ou or your family ever eat less than you felt you should because there wasn't enough money for food? No 03/02/2021 Stable Housing Answer Date Recorded Are you worried that in the next 2 months you may not have stable housing? No 03/02/2021 Transportation Concerns Answer Date Rec orded In the last 12 months, have you or your family ever had to go without healthcare because you didn't have a way to get there? No 03/02/2021 Hazards in Home Answer Date Recorded Think about the place you li ve. Do you have problems with any of the following? Pests (mice or roaches), mold, no/not working smoke detectors, water leaks, no window guards. No 2020 Financing Utilities Answer Date Recorde d In the last 12 months, has t he electric, gas, oil, or water company threatened to shut off your services in your home? No 03/02/2021 Safety at Home Answer Date Recorded Are you or your family worried about feeling saf e in your home? No 03/02/2021 Outside Support Answer Date Recorded Do you feel that you need mo re support from other people or programs to help you care for yourself or your family? No 03/02/2021 Understanding Health Concerns Answer Da te Recorded Do you need help understandi ng your or your child's healthcare needs (diagnosis, medications, plan, etc.)? No 03/02/2021 Financing Health Concerns Answer Date R ecorded In the last 12 months, was t here a time when your child needed to see a doctor or get medications or supplies but could not because of cost? No 03/02/2021 Missing School or Work Answer Date Broderick rded Did you or your child miss s chool or work because of a health problem that could have been avoided? No 03/02/2021 Comments No Sex and Gender Information Value Date Recorded Sex Assigned at Not on file Legal Sex Female 6:23 PM EDT Gender Identity Not on file Sexual Orientation Straight 03/02/2021 5: 23 PM EDT documented as of this encounter Miscellaneous Notes * Telephone Encounter - Perry Claire MD - 06/29/2023 8:30 AM EST Per Lila's visit two weeks ago for this issue If her symptoms are worsening or not responding to above, I asked her to reach out to me if she has not established with an adult PCP yet Will send inscript now. Prescriptions reviewed and eprescribed to pharmacy * Telephone Encounter - Talisha Santos CMA - 06/29/2023 7:32 AM EST Inactive Please refuse Thanks documented in this encounter Plan of Treatment Not on file documented as of this encounter Visit Diagnoses Diagnosis Other headache syndrome documented in this encounter Care Teams Paper Cutter Operator Relationship Specialty Start Date End Date Ashlyn Galeano NP [address] [place] [address] PCP - General Pediatrics 04/05/19 08/19/24 documented as of this encounter
== END 2025-01-29 01:18 | disposition left against medical advice (07) ==
PROVIDERS: Emergency Provider Emergency Medicine
DX: R10.31 Right lower quadrant pain (principal); R10.11 Right upper quadrant pain; Z53.21 Procedure and treatment not carried out due to patient leaving prior to being seen by health care provider
CPT/HCPCS: 36415; 80048; 81001; 81003; 83690; 84702; 85025; 99281; 99282

== ENCOUNTER 2025-02-01 10:55 | Outpatient (AMB) | payer OTHER, SELFPAY ==
--- OUTSIDE RECORDS SUMMARY | 2022-07-16 14:39 | XMS_ITS | Encounter Summary ---
Author Organization [facility] Address [address] [place] [address] Phone Care Team Providers Care Subway Conductor Name Role Phone Pcp, Unknown Primary Care Provider Unavailabl e Encounter Details Date Type Department Care Team (Late st Contact Info) Description 07/16/2022 1:39 PM EST Hospital Encounter [facility] [address] [place] [phone] Gisell Doan FNP 12 [place] [address] [email or web address] Social History Tobacco Use Types Packs/Day Years [...] reportoriginally created by Stanley Stanley. Gisell Doan TELECOMMUNICATIONS OPERATOR IMG XR LOWER EXTREMITY Camille l Result documented in this encounter Visit Diagnoses Not on filedocumented in this encounter Care Teams Subway Conductor Relationship Specialty Start Date End Date Pcp, Unknown PCP - General 07/16/22 documented as of this encounter Additional Source Comments The information contained in this document represents components of the legal health record. It is not the complete legal health record.[facility]
--- NOTE | 2025-02-01 07:42 | A.OFFPC_ITS ---
Intake Visit Reasons: Labs Allergies Penicillins Allergy (Severe, Verified 02/01/25 07:42) Hives Medication List - Last Reconciled 02/01/25 by Gloria Rivera [facility]- mecobalamin (vitamin B12) 1,000 mcg PO DAILY norethindrone-e.estradiol-iron 1 mg-10 mcg (24)/10 mcg (2) (Lo Loestrin Fe) 1 tab PO DAILY Tobacco use date assessed: 12/24/24 Dental Screening Dental Screen Date: 12/24/24 HPI HPI Comments History of Present Illness Details 24 y/o F with dysmenorrhea, chondromalac ia of patella L, Headaches, family hx of colon ca(paternal side), Vape nicotine Surgery: wisdom tooth extraction 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 - Severe, random pain began earlier in t he week. - Pain radiates to RLQ - Fluctuating severity with some days in tense. - Went to [facility] on Tuesday but left d/t wait time. Labs reviewed w/ her today. . - Blood present in urine. She was not on period during time of urine. - Denies fever, chills, nausea, vomiting . - Has been increasing hydration Review of Systems - Genitourinary: Reports right lower comfort k pain and blood in urine. - Constitutional: Denies fever and chill s. - Gastrointestinal: Denies nausea and vo miting. Results - Labs: see below Assessment and Plan 1. Right Renal Calculus (Kidney Stone) L ikely - Suspected due to hematuria and pain. - Prescribed Tamsulosin to assist stone passage. - Prophylactic antibiotics started. - High-dose ibuprofen prescribed for jesse n. - Advised significant hydration. - Follow-up if worsening occurs, with cl inic visit option. All questions answered Telehealth Attestation Documentation for this telehealth visit was completed via phone. The patient has been explained that this is an interactive (audio/video) telehealth encounter and what that consists of. The patient understands and wishes to proceed. [employer] platform was used. Total time spent caring for the patient today was 21 minutes. This includes time spent before the visit reviewing the chart, time spent during the visit, and time spent after the visit on documentation, reviewing laboratory results, diagnostic imaging, medications, performing a medically necessary evaluation, counseling on diagnoses, care coordination, ordering appropriate tests, ordering appropriate medications, review of tests performed by other providers, reporting test results with the patient, communication with other healthcare providers. [facility] Medical History (Updated 02/01/25 @ 11:27 by Gloria Rivera [facility]) No pertinent family history No pertinent past medical history Surgical History (Updated 12/24/24 @ 11:07 by Katerina Gates MA) No pertinent past surgical history Social History (Updated 12/24/24 @ 11:07 by Katerina Gates MA) Household Members: Family Household Members Other:: Parents Both parents involved: No Caregiver staying overnight: No Housing: House Are you a primary vehicle care specialist to a significant other at home: No Do you presently have visiting nurse or other home services: No 75 years or older and lives alone: No Alcohol intake: current Alcohol intake frequency: a few times a month Patient Tobacco Use Status: Never used Tobacco e-Cigarette/Vaping Use: Never Used Second Hand Smoke Exposure: No Current occupational status: employed 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 Perry Watkins, Fatuma Crockett, Girma Kurtz and colleagues, with an educational milan from [employer]. Physical exam (Primary Care) Tobacco/Smoking Status: Tobacco use Status Tobacco use date assessed 12/24/24 02/01/25 07:42 Patient Tobacco Use Status Never used Tobacco 02/01/25 07:42 e-Cigarette/Vaping Use Never Used 02/01/25 07:42 Thrive Assessment: Date of Thrive Assessment Date Thrive assessed 12/24/24 02/01/25 07:42 Telehealth Telehealth Telehealth Platform: Doximity Location of provider rendering services: practice address Location of patient: address on file Patient Identification confirmed using: Name, : Yes Telehealth method: voice only Patient verbally consented to treatment: Yes Patient verbally consented to billing insurance company: Yes Patient informed of any privacy concerns related to visit: Yes Minutes spent on Phone/Video with Pt.: 8 Results Reviewed Results Reviewed: RUN: 02/01/25 0743 PAGE 1 [facility] [address] [place] [phone] Milk Pasteurizer: Darin London M.D. Specimen Inquiry Name: EvansmazinArt Age/Sex: 24/F : 2000 Unit#: [id number] Attend Dr: Maureen Amaral DO Re01/29/25 Status: DEP ER Location: .ED Disch: SPEC : [id number] DONG: 01/28/25 STATUS: COMP REQ : [id number] RECD: 01/28/[address]: Maureen Amaral DO COMP: 01/28/25 ENTERED: 01/28/[address]: Generic ED Physician Physician,Unknown ORDERED: CBC Auto Diff Test Result Flag Reference WBC 7.8 4.8-10.8 X10*3/uL RBC 4.61 4.20-5.50 X10*6/uL HGB 14.0 12.0-16.0 g/dl HCT 39.4 37.0-47.0 % MCV 85.5 80.0-98.0 fL MCH 30.4 27.0-33.0 pg MCHC 35.5 H 31.0-35.0 g/dl RDW 12.4 11.0-16.0 % PLT 244 160-400 X10*3/uL MPV 9.9 9.4-12.3 fL Neut Pct Auto 61.7 45-73 % ImGran Pct Auto 0.3 0.0-0.4 % Lymp Pct Auto 27.6 20-40 % Emmet Pct Auto 8.5 2-11 % Eos Pct Auto 1.5 0-4 % Baso Pct Auto 0.4 0-2 % NRBC Pct Auto 0.0 0.0-0.2 /100WBC ANC Neut Abs # 4.8 2.0-8.3 x10*3/uL ImGran Abs Auto 0.02 0.00-0.03 X10*3/uL Lymph Abs Auto 2.2 1.2-4.9 X10*3/uL Emmet Abs Auto 0.7 0.1-1.2 X10*3/uL Eos Abs Auto 0.1 0.0-0.4 X10*3/uL Baso Abs Auto 0.0 0.0-0.2 X10*3/uL NRBC Abs Auto 0.000 0.0-0.012 X10*3/uL RUN: 02/01/25 0743 PAGE 1 [facility] [address] [place] [phone] Milk Pasteurizer: Darin London M.D. Specimen Inquiry Name: Art Parks Age/Sex: 24/F : 2000 Unit#: [id number] Attend Dr: Maureen Amaral DO Re01/29/25 Status: DEP ER [facility] Disch: SPEC : [id number] DONG: 01/28/25 STATUS: COMP REQ : [id number] RECD: 01/28/[address] [facility] [address]: Maureen Amaral DO COMP: 01/28/25 ENTERED: 01/28/[address]: Generic ED Physician Physician,Unknown ORDERED: BMP, Lip, HCG Quant Test Result Flag Reference Sodium 138 135-145 mmol/L Potassium 3.7 3.3-5.1 mmol/L CL 110 H 96-108 mmol/L CO2 24 22-29 mmol/L Gap 8 L 12-20 BUN 7 L 9-16 mg/dL Creat 0.67 0.5-1.4 mg/dL Estimated CrCl 118.5 Provided height and weight: 165.1 cm, 63.9 kg. eGFR (calculated from the MDRD study equation) and eCrCl (calculated from the Cockcroft-Gault equation) are based on different parameters and may not yield comparable results. If eCrCl result is absurd, please check patient's height/weight. eGFR > 60 Chronic Kidney Disease: Estimated GFR < 60 mL/min/1.73m2 Severe Kidney Disease: Estimated GFR < 15 mL/min/1.73m2 Glucose, Random 97 60-115 mg/dL CA 8.9 8.4-10.2 mg/dL Lipase 20 8-78 U/L HCG Quant < 2 mIU/mL Weeks post LMP Approximate hCG (Last Menstrual Period) Range (mIU/ml) 3 - 4 weeks 9 - 130 4 - 5 weeks 75 - 2,600 5 - 6 weeks 850 - 20,800 6 - 7 weeks 4000 - 100,200 7 - 12 weeks 11,500 - 289,000 12 - 16 weeks 18,300 - 137,000 16 - 29 weeks (2nd trimester) 1,400 - 53,000 29 - 41 weeks (3rd trimester) 940 - 60,000 The [place] B-hCG assay is used for the early detection of ; it cannot be used to diagnose any condition unrelated to . If a B-hCG level is not supported by the clinical evidence, results should be confirmed by an alternative method (qualitative urine hCG, for example). RUN: 02/01/25 0744 PAGE 1 [facility] [address] [place] [phone] Milk Pasteurizer: Darin London M.D. Specimen Inquiry Name: Art Parks Age/Sex: 24/F : 2000 Unit#: [id number] Attend Dr: Maureen Amaral DO Re01/29/25 Status: DEP ER Location: .ED Disch: SPEC : [id number] DONG: 01/28/25 STATUS: COMP REQ : [id number] RECD: 01/28/[address]: Generic ED Physician COMP: 01/28/25 ENTERED: 01/28/[address]: Physician,Unknown ORDERED: [facility] w [place] QUERIES: Collection Date: 01/28/25 Collection Time: 2136 Source: Urine, Clean Catch Test Result Flag Reference Ur Color Yellow Ur Appear Clear PH 7.0 5.0-9.0 Ur Glu Negative Negative mg/dL Urine Blood Small (1+) H Negative Spec Logan Ur <= 1.005 1.005-1.025 Urine Protein Negative Neg-Trace mg/dL Urine Ketones Negative Negative mg/dL Ur Nitrite Negative Negative Ur Ana Esterase Negative Negative Ur RBC 0-2 0-2 /HPF Ur WBC 0-5 0-5 /HPF Ur Squam Epi 0-2 0-2 /HPF Ur Bact None Seen None Seen Ur Hyaline Manager Government 0-2 0-2 /LPF Coding Level of Care Code Tele Est Pt Level 3 (18053) Complex EM visit Add On G2211 Diagnoses Right flank pain R10.9 Hospital discharge follow-up Z09 Hematuria, unspecified type R31.9 Hematuria type: unspecified type Assessment & Plan Assessment & Plan (1) Right flank pain: Code(s): R10.9 - Unspecified abdominal pain (2) Hospital discharge follow-up: Code(s): Z09 - Encounter for follow-up examination after completed treatment for conditions other than malignant neoplasm (3) Hematuria: Code(s): R31.9 - Hematuria, unspecified Category: Medical Qualifiers: Hematuria type: unspecified type Qualified Code(s): R31.9 - Hematuria, unspecified Plan . Medications: New tamsulosin 0.4 mg PO DAILY 14 caps 0RF ciprofloxacin HCl 500 mg PO BID 6 tabs 0RF ibuprofen 800 mg PO Q8H PRN 30 tabs 0RF pain
--- OUTSIDE RECORDS SUMMARY | 2025-02-01 11:05 | XMS_ITS | Data Portability ---
Author Organization [place] [facility],, KATELYN GAINES MD Address [address] [address] Care Team Providers Care Pesticide Applicator Name Role Phone [facility] Primary Care Provider Assessment No assessment recorded. [...] Go To The Location Of Their Choice, [id number] 12/02/2022 07:29:18 CBC w/ auto diff 2022 023 [facility] (Centralized Electronic Ordering - All Locations), Patient Can Go To The Location Of Their Choice, [id number] 12/02/2022 07:29:19 lyme disease igg+igm, serum, reflex western blot 2022 023 [facility] (Centralized Electronic Ordering - All Locations), Patient Can Go To The Location Of Their Choice, [id number] 12/02/2022 07:29:19 Referral None recorded. Procedures removal, implantab le contracep tive (PROC) 2022 023 [facility] In-Office Order, Internal Use Only DO Not Attach Compendium DO Not Attach Compendium, Do Not Delete/merge, [id number] 12/22/2022 09:47:39 Surgeries None recorded. Imaging None recorded. Medication Orders Lo Loestrin Fe 1 mg-10 mcg (24)/10 mcg (2) tablet 2024 025 [facility]acy #[id number], [address] [place], [address], 10/24/2024 09:29:50 Lo Loestrin Fe 1 mg-10 mcg (24)/10 mcg (2) tablet 2023 024 [facility] #[id number], [address] [place], [address], 10/24/2023 10:30:59 Patient TargetsNo targets recorded. Patient Instructions Encounter Date Encounter Id Patient Instructions Last Modified By Organization Details Last Modified Time 11/25/2022 [id number] This visit is a phone telehealth visit. The patient consented to the visit by phone. The patient was at home at the time of the call and the provider and patient were the only people on the line. I was at [address] [place] [address], [address], [place], at the time of the call. She is concerned because she had had fatigue since she has had the abnormal vaginal bleeding happening, over the past year. She had a CBC done with her prior technology integration specialist a few months ago and she was [...] has had irregular bleeding since then. Her SYSTEM SALES CONSULTANT, Dr. Brittany Barton, had her get a [...] provera. She is reassured that her prior technology integration specialist did do everything in the right order, [...] 30 minutes Not available 11/25/2022 09:18:37 12/22/2022 [id number] She is here for Nexplanon removal. She [...] care discussed. Not available 12/22/2022 09:43:37 10/24/2023 [id number] learning about healthy weight [email or web address] Not available [...] pharmacy. alan Not available 10/24/2023 10:31:10 06/04/2024 [id number] secondary amenorrhea: care instructions alan Not available [...] has had irregular bleeding since then. Her SYSTEM SALES CONSULTANT, Dr. Brittany Barton, had her get a [...] provera. She is reassured that her prior technology integration specialist did do everything in the right order, [...] minutes alan Not available 06/04/2024 11:39:46 10/24/2024 [id number] learning about healthy weight alan Not available [...] has had irregular bleeding since then. Her SYSTEM SALES CONSULTANT, Dr. Brittany Barton, had her get a [...] provera. She is reassured that her prior technology integration specialist did do everything in the right order, [...] DO Not Attach Compendium, Do Not Delete/merge, [id number] 12/22/2022 08:53:38 10/24/19 24 10/26/2023 IGP, CTNG, RFX APTIM A HPV ASCU chlamydia, nuc. acid amp Negati ve negati ve Not Available [facility] ([facility]) [address] [place], [address], 10/27/2023 12:06:43 10/24/19 24 10/26/2023 IGP, CTNG, RFX APTIM A HPV ASCU gonococcus, nuc. acid amp Negati ve negati ve Not Available [facility] ([facility]) [address] [place], [address], 10/27/2023 12:06:43 10/24/19 24 10/27/2023 IGP, CTNG, RFX APTIM A HPV ASCU diagnosis: Commen t NEGAT CARMINE FOR INTRA EPITH ELIAL LESIO N OR MALIG MICHELLE . FUNGA L ORGAN ISMS MORPH OLOGI OLAMIDE CONSI STENT WITH JONATHAN DA SPECI ES ARE PRESE NT. Not Available [facility] ([facility]) [address] [place], [address], 10/27/2023 12:06:43 10/24/19 24 10/27/2023 IGP, CTNG, RFX APTIM A HPV ASCU specimen adequacy: Tye nunn Satis ron torres for evalu ation . Endoc ervic al and/o r squam ous metap lasti c cells (endo cervi tyrese compo nent) are prese nt. Not Available [facility] ([facility]) [address] [place], [address], 10/27/2023 12:06:43 10/24/19 24 10/27/2023 IGP, CTNG, RFX APTIM A HPV ASCU clinician provided ICD10: Tye nunn Z01.4 19 Not Available [facility] ([facility]) [address] [place], [address], 10/27/2023 12:06:43 10/24/19 24 10/27/2023 IGP, CTNG, RFX APTIM A HPV ASCU performed by: Ale Hull (ASCP ) Not Available [facility] ([facility]) [address] [place], [address], 10/27/2023 12:06:43 10/24/19 24 10/27/2023 IGP, CTNG, RFX APTIM A HPV ASCU . . Not Available [facility] ([facility]) [address] [place], [address], 10/27/2023 12:06:43 10/24/19 24 10/27/2023 IGP, CTNG, [...] ts do occur . Not Available [facility] ([facility]) [address] [place], [address], 10/27/2023 12:06:43 10/24/19 24 10/27/2023 IGP, CTNG, RFX APTIM A HPV ASCU test methodology: TNP The Thin Prep( R) Image r was unabl e to read this speci men. There fore a manua l revie w was perfo rmed. Not Available [facility] ([facility]) [address] [place], [address], 10/27/2023 12:06:43 10/24/19 24 10/27/2023 IGP, CTNG, RFX APTIM A HPV ASCU . Commen t The HPV DNA refle x crite nohemi were not met with this speci men resul t there fore, no HPV testi ng was perfo rmed. Not Available [facility] ([facility]) [address] [place], [address], 10/27/2023 12:06:43 10/25/19 25 10/25/2024 IGP, CTNG, RFX APTIM A HPV ASCU chlamydia, nuc. acid amp Negati ve negati ve Not Available [facility] ([facility]) [address] [place], [address], 10/29/2024 14:20:21 10/25/19 25 10/25/2024 IGP, CTNG, RFX APTIM A HPV ASCU gonococcus, nuc. acid amp Negati ve negati ve Not Available [facility] ([facility]) [address] [place], [address], 10/29/2024 14:20:21 10/25/19 25 10/29/2024 IGP, CTNG, RFX APTIM A HPV ASCU diagnosis: Commen t NEGAT CARMINE FOR INTRA EPITH ELIAL LESIO N OR MALIG MICHELLE . FUNGA L ORGAN ISMS MORPH OLOGI OLAMIDE CONSI STENT WITH JONATHAN DA SPECI ES ARE PRESE NT. Not Available [facility] ([facility]) [address] [place], [address], 10/29/2024 14:20:21 10/25/19 25 10/29/2024 IGP, CTNG, RFX APTIM A HPV ASCU specimen adequacy: Commen t Satis facto ry for evalu ation . Endoc ervic al and/o r squam ous metap lasti c cells (endo cervi tyrese compo nent) are prese nt. Not Available [facility] ([facility]) [address] [place], [address], 10/29/2024 14:20:21 10/25/19 25 10/29/2024 IGP, CTNG, RFX APTIM A HPV ASCU clinician provided ICD10: Tye t Z01.4 19 Not Available [facility] ([facility]) [address] [place], [address], 10/29/2024 14:20:21 10/25/19 25 10/29/2024 IGP, CTNG, RFX APTIM A HPV ASCU performed by: Tye t Danny Wilson , Cytol ogist (ASCP ) Not Available [facility] ([facility]) [address] [place], [address], 10/29/2024 14:20:21 10/25/19 25 10/29/2024 IGP, CTNG, RFX APTIM A HPV ASCU . . Not Available [facility] ([facility]) [address] [place], [address], 10/29/2024 14:20:21 10/25/19 25 10/29/2024 IGP, CTNG, [...] ts do occur . Not Available [facility] ([facility]) [address] [facility], [place], [address], 10/29/2024 14:20:21 10/25/19 25 10/29/2024 IGP, CTNG, RFX APTIM A HPV ASCU test methodology: Comm t This liqui d based ThinP rep(R ) pap test was scree samir with the use of an image guide d systchristoph m. Not Available [facility] ([facility]) [address] [facility], [place], [address], 10/29/2024 14:20:21 10/25/19 25 10/29/2024 IGP, CTNG, RFX APTIM A HPV ASCU . Commen t The HPV DNA refle x crite nohemi were not met with this speci men resul t there fore, no HPV testi ng was perfo rmed. Not Available [facility] ([facility]) [address] [place], [address], 10/29/2024 14:20:21 11/23/19 23 11/26/2022 US, pelvi s, trans abdom inal + trans vagin al No observ ation record ed. BARCODE Not Available 2022 08:53:22 Result Notes None recorded. Problems No Known Problems Procedures Surgical History Date Name Laterality Status Provider Name and Address Organization Details Recorded Time 3 Implanon Removal completed Katelyn Gaines MD [address] [facility],[address], [place], [address], [place] [facility], 12/22/2022 09:44:40 Imaging Results None recorded. Procedure Notes None recorded. Medical Equipment None Reported. Allergies Allergen ID Allergen Name Allergen Category Reaction Reaction Severity Criticality Documentation Date Start Date Code Code System Note Provider Name and Address Organization Details Recorded Time 07305 Product containin g penicilli n (product) medicatio n hives Not available Not available 11/22/2022 46199 8001 SNOMED Shanae Adam hutchins [place] - [facility], 3 08:32:19 Medications Name Sig Start [...] 1 CAPSULE BY MOUTH ONCE DAILY AT [facility] THE SAME TIME EACH DAY.*NOT COVERED 06/04 [...] Body weight Body temperature Heart rate Systolic And Diastolic Provider Name and Address Organization Details Last Updated DateTime 4 166.37 cm 21.7 kg/m2 23011.6 3 g 97.4 [degF] 87 /min 109/75 mm[Hg] luzmaria Weir in [facility], 4 09:53:46 Date Recorded Body height Body mass index (BMI) Body weight Heart rate Systolic And Diastolic Provider Name and Address Organization Details Last Updated DateTime 10/24/2024 166.37 cm 22.5 kg/m2 90268.87 g 77 /min 130/66 mm[Hg] Shanae Weir in [facility], 10/24/2024 09:00:46 Date Recorded Body height Provider Name an d Address Organization Details Last Updated DateTime 11/25/2022 166.37 cm Shanae Espinoza in [facility], 11/25/2022 08:31:41 Date Recorded Body height Body mass index (BMI) Body mass index (BMI) [Percentile] Per age and sex Body weight Systolic And Diastolic Provider Name and Address Organization Details Last Updated DateTime 12/22/2022 166.37 cm 22 kg/m2 52 % 97068.3 8 g 112/57 mm[Hg] Anusha Weir in [facility], 3 08:54:53 Date Recorded Body height Body mass index (BMI) Body weight Body temperature Heart rate Systolic And Diastolic Provider Name and Address Organization Details Last Updated DateTime 4 166.37 cm 22.7 kg/m2 88580.1 8 g 98.1 [degF] 84 /min 123/74 mm[Hg] Shanae Weir in [facility], 4 10:51:13 Social History Question Answer Notes LastModified by Organizat ion Details LastModified Time Tobacco Smoking Status Never Smoker [place] in [facility], 11/22/2022 08:37:25 What Is Your Level [...] Or The Highest Degree You Have Received? [id number] Information not available 11/22/2022 Who Is Your Employer? [employer]. Information not available 11/22/2022 Are There Any [...] anxious, or unable to sleep at night)? [id number] Information not available 11/22/2022 Family History Relationship [...] for MyRisk panel N Autoimmune Condition N Thyroid Problems N Kidney or Bladder Problems N GI Problems N Lung Disease N Depression N Defects or Inherited Disease N History of Ovarian Cancer N Anemia N History of Breast Cancer [...] Vaccine Type Date Status Note Provider Nam e and Address Organization Details Recorded Time COVID-19 Non-[place] Vaccine, Product Unknown 1 completed Not Available [employer] 12/22/2022 08:54:01 [...] split virus, quadrivalent, PF 9 completed Shanae Meczywor null, [place] - [facility], 11/25/2022 08:31:59 Past Encounters Encounter ID Performer Location Encounter Start Date Encounter Closed Date Diagnosis/Indication Diagnosis SNOMED-CT Code Diagnosis ICD10 Code Diagnosis Note [id number] MD KATELYN Lozada MD [address] [place] [address],[place] [address] 11/22/2022 08:23:32 11/22/2022 10:09:02 Abnormal uterine bleeding 3836857800 9100 N93.9 [id number] MD KATELYN Lozada MD [address] [place] [address],[place] [address] 11/25/2022 08:30:33 11/25/2022 10:51:27 Fatigue 05778920 R53.83 Abnormal u terine bleeding 3498946434 9100 N93.9 Lower abdominal pain 545 56880 R10.30 [id number] MD KATELYN Lozada MD [address] [place] [address],[place] [address] 12/22/2022 08:49:48 12/22/2022 09:54:47 Subcutaneous contraceptive implant present 791741437 Z30.46 [id number] MD AKTELYN Lozada MD [address] [place] [address],[place] [address] 10/24/2023 09:50:46 10/24/2023 12:06:47 Specialized medical examination 51732916 Z01.419 Venereal d isease screening 073677530 Z11.3 [id number] MD KATELYN Lozada MD [address] [place] [address],[place] [address] 06/04/2024 10:44:34 06/04/2024 16:03:15 Amenorrhea 18424503 N91.2 [id number] MD KATELYN Lozada MD [address] [place] [address],[place] [address] 10/24/2024 08:52:32 10/24/2024 10:38:19 Specialized medical examination 67391433 Z01.419 Venereal d isease screening 997003256 Z11.3 Health Concerns Section Related Observation LastModified by Organization Detai ls LastModified Time None Recorded Concern Status LastModified by Organization Details LastModified Time None Recorded Advance Directives Directive None Recorded Payers Insurance Date Sequence Insurance Name Policy Number Policy [place] Covered Member ID [place] Member ID Guarantor Name 10/24/2024 1 [facility] ([id number]) [id number] Tamy Parks [id number] Art Kasey 10/24/2024 1 [facility] (PPO) [id number] 01 Tamy Parks [id number] Art Parks Notes Date Note Type Note Provider Name and Address Organization Details Recorded Time 11/25/2022 text/html This visit is a phone telehealth visit. The patient consented to the visit by phone. The patient was at home at the time of the call and the provider and patient were the only people on the line. I was at [address] [place] [address], [address], [place], at the time of the call. She is concerned because she had had fatigue since she has had the abnormal vaginal bleeding happening, over the past year. She had a CBC done with her prior technology integration specialist a few months ago and she was [...] has had irregular bleeding since then. Her SYSTEM SALES CONSULTANT, Dr. Brittany Barton, had her get a [...] provera. She is reassured that her prior technology integration specialist did do everything in the right order, her case is just challenging. Katelyn Gaines MD [address], [place], [address], [facility], 11/25/2022 09:18:57 12/22/2022 text/html She is here [...] MD [address], [place], [address], [facility], 12/22/2022 09:45:21 10/24/2023 text/html She is here for annual, this is her first annual here. She had her Nexplanon removed in 12/31, is doing well on the lo loestrin, no abnormal bleeding. Menses last 7 days of light to moderate bleeding, never heavy. Katelyn Gaines MD [address] [facility],[address], [place], [address], [place] - [facility], [...] has had irregular bleeding since then. Her SYSTEM SALES CONSULTANT, Dr. Brittany Barton, had her get a [...] provera. She is reassured that her prior technology integration specialist did do everything in the right order, her case is just challenging. Katelyn Gaines MD [address] [facility],[address], [place], [address], [place] - [facility], [...] has had irregular bleeding since then. Her SYSTEM SALES CONSULTANT, Dr. Brittany Barton, had her get a [...] provera. She is reassured that her prior technology integration specialist did do everything in the right order, her case is just challenging. Katelyn Gaines MD [address] [facility],[address], [place], [address], [place] - [facility], 10/24/2024 09:30:21 OBGyn Episode No OBEpisode recorded.
--- OUTSIDE RECORDS SUMMARY | 2025-02-01 11:05 | XMS_ITS | Encounter Summary ---
Author Organization [facility] Address [address] [place] [address] Phone Care Team Providers Care Rn Staffing Name Role Phone Ashlyn Galeano NP Primary Care Provider [phone] Reason for Visit * Reason Comments Med Refill Encounter Details Date Type Department Care Team (Late st Contact Info) Description 06/29/2023 Refill [facility] [address] [place] [id number] Ashlyn Galeano NP [address] [place], [place] [id number] Other headache syndrome Social History Tobacco Use [...] syndrome documented in this encounter Care Teams Rn Staffing Relationship Specialty Start Date End Date Ashlyn Galeano NP [address] [place] [address] PCP - General Pediatrics 04/05/19 08/19/24 documented as of this encounter
== END 2025-02-01 11:28 | disposition home or self-care (01) ==
LOC: HO.HMCFM 10:55
PROVIDERS: PCP Nurse Practitioner Family; Visit Provider Nurse Practitioner Family
DX: R10.9 Unspecified abdominal pain (principal); Z09 Encounter for follow-up examination after completed treatment for conditions other than malignant neoplasm; R31.9 Hematuria, unspecified

== ENCOUNTER → 2025-02-01 10:55 | Outpatient (BNVA) | payer OTHER, SELFPAY | PROVIDERS: PCP Nurse Practitioner Family; Visit Provider Nurse Practitioner Family | DX: N94.6 Dysmenorrhea, unspecified (principal); R10.9 Unspecified abdominal pain; R31.9 Hematuria, unspecified; Z09 Encounter for follow-up examination after completed treatment for conditions other than malignant neoplasm | CPT/HCPCS: 98966 ==

== ENCOUNTER 2025-05-06 13:36 | Outpatient (REF) | payer SELFPAY ==
[2025-05-06 17:52] LABS: MANUAL DIFF FLAG NO
[2025-05-06 18:11] LABS: Hematocrit 44.0 % (37.0-47.0); Hemoglobin 14.7 g/dl (12.0-16.0); Imm Gran Abs Auto 0.02 X10*3/uL (0.00-0.03); Imm Gran Pct Auto 0.3 % (0.0-0.4); Lymphocytes Absolute Auto 1.3 X10*3/uL (1.2-4.9); Mean Corpuscular HGB Conc 33.4 g/dl (31.0-35.0); Mean Corpuscular Hemoglobin 28.8 pg (27.0-33.0); Mean Corpuscular Volume 86.1 fL (80.0-98.0); NRBC Abs Auto 0.000 X10*3/uL (0.0-0.012); NRBC Pct Auto 0.0 /100WBC (0.0-0.2); Platelet Count 259 X10*3/uL (160-400); Red Blood Count 5.11 X10*6/uL (4.20-5.50); White Blood Count 6.1 X10*3/uL (4.8-10.8)
[2025-05-06 18:23] LABS: Alanine Aminotransferase 17 U/L (0-31); Albumin Level 4.8 g/dL (3.5-5.0); Alkaline Phosphatase 51 U/L (39-117); Anion Gap 12 (12-20); Aspartate Amino Transferase 24 U/L (5-31); Blood Urea Nitrogen 13 mg/dL (9-16); Calcium 9.4 mg/dL (8.4-10.2); Carbon Dioxide 26 mmol/L (22-29); Chloride 108 mmol/L (96-108); Estimated Glomerular Filt Rate > 60; Potassium 3.7 mmol/L (3.3-5.1); Sodium 142 mmol/L (135-145); Total Protein 7.4 g/dL (6.5-8.0)
[2025-05-06 20:12] LABS: Erythrocyte Sedimentation Rate 2 MM/HR (0-20)
[2025-05-07 03:37] LABS: Hepatitis A Antibody IgM 0.25 Index (0-0.79); ~Hepatitis A Antibody IgM Nonreactive (Nonreactive)
[2025-05-07 04:04] LABS: HBS Num1 1.33 mIU/mL (0-7.99); HBc Num1 0.13 S/CO (0.00-0.79); HBsAGNum1 0.40 S/CO (0.00-0.99); Hepatitis B Surface Antigen Negative (Negative); ~HepC Num1 0.09 S/CO (0.00-0.79); ~Hepatitis B Surface Antibody NONREACTIVE (Nonreactive); ~Hepatitis C Antibody Nonreactive (Nonreactive)
[2025-05-08 20:33] LABS: Immunoglobulin A 226 mg/dL (47-310)
== END 2025-05-06 13:37 | disposition home or self-care (01) ==
LOC: HO.WFDLDS 13:36
PROVIDERS: PCP Nurse Practitioner Family; Visit Provider Nurse Practitioner Family
DX: R10.9 Unspecified abdominal pain (principal); R19.7 Diarrhea, unspecified; Z80.0 Family history of malignant neoplasm of digestive organs
CPT/HCPCS: 36415; 80053; 82784; 85025; 85652; 86140; 86364; 86704; 86706; 86709; 86803; 87340; 99212

== ENCOUNTER 2025-05-06 13:36 | Outpatient (AMB) | payer SELFPAY ==
--- OUTSIDE RECORDS SUMMARY | 2022-07-16 14:38 | XMS_ITS | Encounter Summary ---
Author Organization [facility] Address [address] [place] [address] Phone Care Team Providers Care Research Coordinator Name Role Phone Pcp, Unknown Primary Care Provider Unavailabl e Encounter Details Date Type Department Care Team (Late st Contact Info) Description 07/16/2022 1:38 PM EST Hospital Encounter [facility] [address] [place] [phone] Gisell Doan FNP [address] [place] [address] [email or web address] Social History Tobacco Use Types Packs/Day Years Used Date Smoking Tobacco: Never Smokeless Tobacco: Never Education Answer Date Recorded Are you interested in more education? Not on capo e 11/06/2022 Are you concerned about learning? Not on file 11/06/2022 No 11/06/2022 No 11/06/2022 Digital Access Answer Date Recorded No 12/05/2022 No 12/05/2022 No 12/05/2022 Reliable internet access at home? Not on file 12/05/2022 Device with a working camera? Not on file Comments Unknown Sex and Gender Information Value Date Recorded Sex Assigned at Not on file Legal Sex Female 12:01 PM EST Gender Identity Not on file Sexual Orientation Not on file documented as of this encounter Plan of Treatment Not on file documented as of this encounter Procedures Procedure Name Priority Date/Time Associated Diagnosis Comments XR ANKLE 3 OR MORE VIEWS (RIGHT) Urgent/patient waiting 07/16/2022 1:49 PM EST Fall, initial encounter documented in this encounter Results * XR ANKLE 3 OR MORE VIEWS (RIGHT) (07/16/2022 1:49 PM EST) Anatomical Region Laterality Modality Ankle Right Computed Radiogr aphy 07/16/2022 2:31 PM EST Impressions 07/16/2022 2:31 PM EST 1. No displaced fracture or dislocation. 2. Soft tissue swelling along the lateral greater than medial malleolus. 3. Bandlike sclerosis over the talus, age indeterminate. Needs correlation if focal tenderness at the calcaneus and mechanism of trauma. A clinically significant result was communicated and documented via a closed loop communication system. ATTESTATION: Lesley Richardson as teaching physician, have reviewed the images for this case and if necessary edited the report originally created by Stanley Stanley. Narrative 07/16/2022 2:31 PM EST XR TIBIA FIBULA 2 VIEWS (RIGHT), XR ANKLE 3 OR MORE VIEWS (RIGHT) COMPARISON: None. FINDINGS: Right tibia and fibula and ankle: No fracture. Normal alignment. Visualized portion of the knee and ankle appear normal. No soft tissue swelling. Mild to moderate tissue swelling along the lateral greater than medial malleolus. Ankle mortise is maintained. Bandlike sclerosis over the talus, age indeterminate. Procedure Note Lesly Andrea MD - 07/16/2022 XR TIBIA FIBULA 2 VIEWS (RIGHT), XR ANKLE 3 OR MORE VIEWS (RIGHT) COMPARISON: None. FINDINGS: Right tibia and fibula and ankle: No fracture. Normal alignment.Visualized portion of the knee and ankle appear normal. No soft tissueswelling. Mild to moderate tissue swelling along the lateral greater than medialmalleolus. Ankle mortise is maintained. Bandlike sclerosis over the talus,age indeterminate. IMPRESSION: 1. No displaced fracture or dislocation. 2. Soft tissue swelling along the lateral greater than medial malleolus. 3. Bandlike sclerosis over the talus, age indeterminate. Needscorrelation if focal tenderness at the calcaneus and mechanism oftrauma. A clinically significant result was communicated and documented via aclosed loop communication system. ATTESTATION: Lesley Richardson as teaching physician, havereviewed the images for this case and if necessary edited the reportoriginally created by Stanley Stanley. Gisell Doan NURSE CARE MANAGER IMG XR LOWER EXTREMITY Camille l Result documented in this encounter Visit Diagnoses Not on filedocumented in this encounter Care Teams Research Coordinator Relationship Specialty Start Date End Date Pcp, Unknown PCP - General 07/16/22 documented as of this encounter Additional Source Comments The information contained in this document represents components of the legal health record. It is not the complete legal health record.[facility]
--- OUTSIDE RECORDS SUMMARY | 2022-07-16 14:39 | XMS_ITS | Encounter Summary ---
Author Organization [facility] Address [address] [place] [address] Phone Care Team Providers Care It Solutions Sales Consultant Name Role Phone Pcp, Unknown Primary Care Provider Unavailabl e Encounter Details Date Type Department Care Team (Late st Contact Info) Description 07/16/2022 1:39 PM EST Hospital Encounter [facility] [address] [place] [phone] Gisell Doan FNP [address] [place] [address] [email or web address] Social History Tobacco Use Types Packs/Day [...] reportoriginally created by Stanley Stanley. Gisell Doan MANAGER ERP IMG XR LOWER EXTREMITY Camille l Result documented in this encounter Visit Diagnoses Not on filedocumented in this encounter Care Teams It Solutions Sales Consultant Relationship Specialty Start Date End Date Pcp, Unknown PCP - General 07/16/22 documented as of this encounter Additional Source Comments The information contained in this document represents components of the legal health record. It is not the complete legal health record.[facility]
--- NOTE | 2025-05-06 13:40 | MHC.PC.OV ---
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: No Allergies Penicillins Allergy (Severe, Verified 05/06/25 14:06) Hives Medication List - Last Reconciled 05/06/25 by Gloria Rivera, PARTS PROFESSIONAL-BC ibuprofen 800 mg PO Q8H PRN mecobalamin (vitamin B12) 1,000 mcg PO DAILY norethindrone-e.estradiol-iron 1 mg-10 mcg (24)/10 mcg (2) (Lo Loestrin Fe) 1 tab PO DAILY Tobacco use date assessed: 05/06/25 Dental Screening Dental Screen Date: 05/06/25 Did you have a dental visit in the last 12 months?: Yes Did you have a dental problem in the last 6 months where you did not have access to dental care?: No Was dental information given to patient?: Patient has dentist HPI HPI Comments History of Present Illness Details 24 y/o F with dysmenorrhea, chondromalacia of patella L, Headaches, family hx of colon ca(paternal side), Vape nicotine, kidney stones Surgery: wisdom tooth extraction 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 Family hx: Mom and Dad alive, Younger 1/2 brother; Dad with cololn polyps, PGF colon ca around age 50, MGM MS; Health Maintenance Tdap 2024 [facility] [place] 2024; normal History of Present Illness The patient is a 24 year old female presenting with abdominal pain and diarrhea. Abdominal pain and Diarrhea: - The patient reports a two-month history of intermittent, severe abdominal pain that occurs immediately after eating, associated with an urgent need to defecate and diarrhea. - The pain is described as affecting the lower abdomen or the entire stomach, sometimes so severe that she has to pull her car over while driving. - The symptoms occur with any food intake, and the patient denies any recent travel, new foods, or sick contacts. - She denies nausea but reports a new intolerance to alcohol, causing vomiting after one or two drinks, whereas she does not vomit from eating meals. - The diarrhea is sometimes watery, and while she denies seeing blood in the stool, she has noticed blood on toilet paper from wiping. - She notes that symptoms are sometimes relieved by a bowel movement, but other times the abdominal pain persists all day. - She has not tried any antidiarrheal medications. - Past medical history includes a kidney stone for which she took antibiotics, and a prior evaluation for heavy periods that included an ultrasound, with symptoms now controlled on control. - Family history is significant for a father with colon polyps and a paternal grandfather with colon cancer. Past Medical History - History of kidney stone, treated with antibiotics. - No history of abdominal surgery. - History of heavy periods with a past negative workup for anemia and endometriosis. - Family history: Father has colon polyps and paternal grandfather had colon cancer. - Denies family history of IBS or IBD. Review of Systems - Gastrointestinal: Reports intermittent, severe abdominal pain for the past two months, occurring immediately after eating. - Associated with bowel urgency and diarrhea, which is sometimes watery. - Reports vomiting after consuming alcohol. - Denies nausea and vomiting associated with meals. - Denies hematochezia or melena, but reports occasional blood on toilet paper from wiping. - Genitourinary: Denies dysuria. - Reports last menstrual period was two weeks ago and is on control. - All other systems reviewed and are negative. Physical Exam General: Well developed, well nourished, in no acute distress. Appears stated age. Head: Normocephalic, atraumatic. Eyes: Pupils are equal, round and reactive to light and accommodation. Conjunctivae are clear. Scleras nonicteric MMM. Lungs: Speaking in full sentences Heart: Regular rate and rhythm. No murmurs, click, rubs or gallops are noted. Abdomen: Bowel sounds present in all quadrants. The abdomen is soft, but tender around the belly button and on both sides, no rigidity, no peritoneal signs, neg jump sign, with no masses or organomegaly noted. No hernias are noted. Musculoskeletal: Joints are nontender, without swelling, redness, or effusions. Pulses: Peripheral pulses are equal and palpable bilaterally. Extremities: No clubbing, cyanosis nor edema is noted. Psych: Mood and affect appropriate. Diagnostic results Pending Medical Decision Making The patient is a 24-year-old female presenting with a two-month history of intermittent, severe postprandial abdominal pain and diarrhea. The physical exam is notable for periumbilical tenderness without peritoneal signs. The differential diagnosis is broad; however, given the periumbilical pain, appendicitis, while less likely given the chronicity, must be ruled out. Other possibilities include infectious etiologies, such as C. difficile colitis given her recent antibiotic use, inflammatory bowel disease, which is less likely as she has no family history, or celiac disease. A urinary source is also considered given her history of a kidney stone. Considering her significant family history of colon polyps and colon cancer, a thorough workup is warranted. The initial plan involves ordering a urinalysis, a broad panel of blood tests including CBC, inflammatory markers, CMP, hepatitis panel, and a celiac screen. A stool sample will also be collected to test for bacteria, C. difficile, and occult blood. To urgently evaluate for acute pathology, a stat ultrasound of the abdomen will be performed. We will follow up on these results and, if they are unrevealing, we will consider further imaging such as a CT scan or a referral to gastroenterology, though the latter is less preferred due to long wait times. Plan 1. Acute Abdominal Pain And Diarrhea - A comprehensive lab workup will be performed, including a urinalysis, CBC to check for infection or anemia, inflammatory markers to rule out conditions like appendicitis, a CMP to assess liver function and electrolytes, a hepatitis panel, and a celiac screen. - The patient will be provided with a kit to collect a stool sample at home to test for bacterial pathogens, Clostridioides difficile, and occult blood. - A stat ultrasound of the abdomen will be ordered to urgently assess for acute pathologies, such as appendicitis. - Follow-up will be scheduled to discuss all results. - If the initial workup is negative, further steps such as a CT scan or a referral to a city jailer for a colonoscopy will be considered. Patient Instructions - Please stop at the assistant front office manager before you leave to have them coordinate your lab tests and the stat ultrasound I have ordered. - You will need to provide a urine sample and have your blood drawn today. - You will be given a container to collect a stool (poop) sample at home. - During your ultrasound, if the relay technician asks you to wait while they call me, it means they may have found something that needs attention right away. If they let you leave, it means any findings are not an emergency. - You will receive a phone call if any of your lab results are critical, but you can also view them on the patient portal. - We need to follow up to discuss all the results and figure out the next steps for your care. Consent Patient was informed and verbally consented to the use of an ambient scribe for clinic note documentation during this visit. Total time spent caring for the patient today was 30 minutes. This includes time spent before the visit reviewing the chart, time spent during the visit, and time spent after the visit on documentation, reviewing laboratory results, diagnostic imaging, medications, performing a medically necessary evaluation, counseling on diagnoses, care coordination, ordering appropriate tests, ordering appropriate medications, review of tests performed by other providers, reporting test results with the patient, communication with other healthcare providers. [facility] Medical History (Updated 05/06/25 @ 14:35 by Gloria Rivera [facility]) No pertinent family history No pertinent past medical history Surgical History (Updated 12/24/24 @ 11:07 by Katerina Gates MA) No pertinent past surgical history Social History (Updated 12/24/24 @ 11:07 by Katerina Gates MA) Household Members: Family Household Members Other:: Parents Both parents involved: No Caregiver staying overnight: No Housing: House Are you a primary gericare aide to a significant other at home: No Do you presently have visiting nurse or other home services: No 75 years or older and lives alone: No Alcohol intake: current Alcohol intake frequency: a few times a month Patient Tobacco Use Status: Never used Tobacco e-Cigarette/Vaping Use: Never Used Second Hand Smoke Exposure: No Current occupational status: employed 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 Cognitive needs: No Hearing needs: No Vision needs: No Questionnaire Thrive Questionnaire Date Thrive assessed: 12/24/24 I am a: Patient What is your living situation today?: I have a steady place to live Within the past 12 months, did the food you bought not last and you didn't have the money to get more?: Never true Within the past 12 months, did you worry whether your food would run out before you got money to buy more?: Never true Do you have trouble paying for medicines?: No Do you have trouble getting transportation to medical appointments?: No Do you have trouble paying your heating and electricity bill?: No Do you have trouble taking care of your child, family member or friend?: No Do you have trouble with day-to-day activities such as bathing, preparing meals, shopping, managing finances, etc.?: No Are you currently unemployed and looking for a job?: No Are you interested in more education?: No Please select the resources that you would like help with: None Currently or been in a relationship where the following occur: No concerns reported THRIVE Score: 0 MAXINE-7 AMB Questionnaire MAXINE-7 Date MAXINE - 7 assessed: 12/24/24 Source: Developed by Drs. Perry Watkins, Fatuma Crockett, Girma Kurtz and colleagues, with an educational milan from [employer]. Physical exam (Primary Care) Vital Signs: Last Vital Signs Temp 97.2 F 05/06/25 13:44 Pulse 72 05/06/25 13:44 Resp 12 05/06/25 13:44 BP 122/68 05/06/25 13:44 Pulse Ox 99 05/06/25 13:44 Oxygen Delivery Method Room Air 05/06/25 13:44 BMI result Body Mass Index 22.9 Tobacco/Smoking Status: Tobacco use Status Tobacco use date assessed 05/06/25 05/06/25 13:46 Patient Tobacco Use Status Never used Tobacco 05/06/25 13:46 e-Cigarette/Vaping Use Never Used 05/06/25 13:46 Thrive Assessment: Date of Thrive Assessment Date Thrive assessed 12/24/24 05/06/25 13:46 Currently or been in a relationship where the following occur: No concerns reported Coding Level of Care Code Est Pt Level 4 (08459) Complex EM visit Add On G2211 Diagnoses Acute abdominal pain R10.9 Family history of colon cancer Z80.0 Diarrhea, unspecified type R19.7 Diarrhea type: unspecified type Assessment & Plan Assessment & Plan (1) Acute abdominal pain: Code(s): R10.9 - Unspecified abdominal pain Category: Medical (2) Family history of colon cancer: Comment: Dad age 42 noncancerous polyps PGF colon ca around age 50 Great PGF of colon ca unsure of age Code(s): Z80.0 - Family history of malignant neoplasm of digestive organs Category: Medical (3) Diarrhea: Code(s): R19.7 - Diarrhea, unspecified Category: Medical Qualifiers: Diarrhea type: unspecified type Qualified Code(s): R19.7 - Diarrhea, unspecified Plan . Orders: Orders GI Panel Today R10.9 - Unspecified abdominal pain C Reactive Protein Today R10.9 - Unspecified abdominal pain Hepatitis A,B,C Profile Today R10.9 - Unspecified abdominal pain Celiac Disease Panel Today R10.9 - Unspecified abdominal pain US appendix Today R10.9 - Unspecified abdominal pain Complete Blood Count Auto Diff Today R10.9 - Unspecified abdominal pain Comprehensive Met. Panel Today R10.9 - Unspecified abdominal pain Erythrocyte Sedimentation Rate Today R10.9 - Unspecified abdominal pain CDiff Gene PCR Today R10.9 - Unspecified abdominal pain OBSX3 Today R10.9 - Unspecified abdominal pain Calprotectin, Fecal Today R10.9 - Unspecified abdominal pain Medications: Discontinued tamsulosin Discontinued Reason: Patient Completed Course 0.4 mg PO DAILY 14 caps 0RF ciprofloxacin HCl Discontinued Reason: Patient Completed Course 500 mg PO BID 6 tabs 0RF
[2025-05-06 13:44] VITALS: BP 122/68; PULSE 72; RESP 12; TEMP 36.2; O2SAT 99; BMI 22.9
--- OUTSIDE RECORDS SUMMARY | 2025-05-06 17:17 | XMS_ITS | Encounter Summary ---
Author Organization [facility] Address [address] [place] [address] Phone Care Team Providers Care Network Project Manager Name Role Phone Ashlyn Galeano NP Primary Care Provider [phone] Reason for Visit * Reason Comments Med Change Request Encounter Details Date Type Department Care Team (Late st Contact Info) Description 03/27/2022 [address]ill [facility] [address] [place] [id number] Ashlyn Galeano NP [address] [place], [place] [id number] Other headache syndrome Social History Tobacco Use [...] encounter Miscellaneous Notes * Telephone Encounter - Addy Witt DO - 03/27/2022 1:20 PM EDT rx reviewed and eprescribed to patient's pharmacy * Telephone Encounter - Addy Witt DO - 03/27/2022 1:20 PM EDT rx reviewed and eprescribed to patient's pharmacy * Telephone Encounter - Beverly Hillman MA - 03/27/2022 1:17 PM EDT 90 days supply requested for Vit B and Antacid Last [facility] 03/02/21 Upcoming 04/28/22 Refilled 03/09/22 1 refill Please review documented in this encounter Plan of Treatment Not on file documented as of this encounter Visit Diagnoses Diagnosis Other headache syndrome documented in this encounter Care Teams Network Project Manager Relationship Specialty Start Date End Date [facility] [address] P[facility] - General Pediatrics 04/05/19 08/19/24 documented as of this encounter
--- OUTSIDE RECORDS SUMMARY | 2025-05-06 17:17 | XMS_ITS | Encounter Summary ---
Author Organization [facility] Address [address] [place] [address] Phone Care Team Providers Care Lift Team Technician Name Role Phone Ashlyn Galeano NP Primary Care Provider [phone] Reason for Visit * Reason Comments Med Refill Encounter Details Date Type Department Care Team (Late st Contact Info) Description 06/29/2023 Refill [facility] [address] [place] [id number] Ashlyn Galeano NP [address] [place], [place] [phone] Other headache syndrome Social History Tobacco Use [...] syndrome documented in this encounter Care Teams Lift Team Technician Relationship Specialty Start Date End Date Ashlyn Galeano NP [address] [place] [address] PCP - General Pediatrics 04/05/19 08/19/24 documented as of this encounter
--- OUTSIDE RECORDS SUMMARY | 2025-05-06 17:17 | XMS_ITS | Encounter Summary ---
Author Organization [facility] Address [address] [place] [address] Phone Care Team Providers Care Cold Type Artist Name Role Phone Ashlyn Galeano NP Primary Care Provider [phone] Encounter Details Date Type Department Care Team (Late st Contact Info) Description 11/27/2017 Conversion Encounter [facility] [address] [place] [address] Maria Eugenia Mcdowell MD Social History Tobacco Use Types Packs/Day Years Used Date Smoking Tobacco: Never Assessed Comments Unknown Sex and Gender Information Value Date Recorded Sex Assigned at Not on file Legal Sex Female 6:23 PM EDT Gender Identity Not on file Sexual Orientation Straight 03/02/2021 5: 23 PM EDT documented as of this encounter Plan of Treatment Not on file documented as of this encounter Visit Diagnoses Not on filedocumented in this encounter Care Teams Cold Type Artist Relationship Specialty Start Date End Date Ashlyn Galeano NP [address] [place] [address] PCP - General Pediatrics 04/05/19 08/19/24 documented as of this encounter
--- OUTSIDE RECORDS SUMMARY | 2025-05-06 17:17 | XMS_ITS | Clinical Summary ---
Author Organization [facility] Address [address] [address] Phone Care Team Providers Care Park Interpretive Ranger Name Role Phone Pcp, Unknown Primary Care Provider Unavailabl e Allergies Active Allergy Reactions Criticality Noted Date Comments Penicillins Rash High 07/16/2022 Medications etonogestreL (NEXPLANON) 68 mg Impl Inject 68 mg under the skin. 1 Active magnesium oxide 500 mg Cap TAKE 1 CAPSULE BY MOUTH ONCE DAILY AT APPROXIMATELY THE SAME TIME EACH DAY. 2 Active naproxen (EC NAPROSYN) 500 MG EC tablet Take 500 mg by mouth. 2 Active riboflavin, vitamin B2, (,VITAMIN B-2,) 100 mg Tab Take 1 tablet by mouth 2 (two) times a day. 2 Active ibuprofen (ADVIL,MOTRIN) 600 MG tablet Take 1 tablet (600 mg total) by mouth 3 (three) times a day for 3 days. Then tid prn pain/inflammation 30 tablet 3 Active Active Problems No known active problems Social History Tobacco Use Types Packs/Day Years Used Date Smoking Tobacco: Never Smokeless Tobacco: Never Tobacco Cessation:Counseling Given: Not Answered Education Answer Date Recorded Are you interested [...] on file Sexual Orientation Not on file Last Filed Vital Signs Vital Sign Reading Time Taken Comments Blood Pressure 116/78 07/16/2022 1:25 PM EST Pulse 77 07/16/2022 1:25 PM EST Temperature 37.1 C (98.7 F) 07/16/2022 1:25 PM EST Respiratory Rate 16 07/16/2022 1:25 PM EST Oxygen Saturation 100% 07/16/2022 1:25 PM EST Inhaled Oxygen Concentration - - Weight 59.9 kg (132 lb) 07/16/2022 1:25 PM EST Height 165.1 cm (5' 5 ) 07/16/2022 1:25 PM EST Body Mass Index 21.97 07/16/2022 1:25 PM EST Plan of Treatment Health Maintenance Due Date Last Done Comments DEPRESSION SCREENING 2014 SMOKING Hx and SMOKELESS TOBACCO SCREENING 2015 CHLAMYDIA SCREENING 2018 MENINGOCOCCAL VACCINES (B) (1 of 2 - Standard) 2018 HEPATITIS C SCREENING 2020 HIV ONE-TIME SCREENING (18-65 YEARS) 2020 PAP SMEAR 2023 Adult Td,Tdap Booster 10/03/2024 10/03/2014 INFLUENZA VACCINE (#1) 2025 9, 04/22/2012, 06/16/2004, Additional history exists COVID-19 VACCINE ( - season) 2025 12/02/2020, 11/04/2020 PNEUMOCOCCAL VACCINES (0-49 years) Aged Out 2002, 2002, 2002 No longer eligible based on patient's age to complete this topic HIB VACCINES Completed 09/16/2003, 12/2002, 2002, Additional history exists HPV VACCINES Completed 01/01/2016, 11/09, 10/03/2014 HEPATITIS A VACCINES Completed 01/05/2018, 01/05/20 17 MENINGOCOCCAL VACCINES (ACWY) Completed 01/12/2019, 10/03/2014 Medical Devices Not on file Insurance [facility] [address] [place], [place] [address] [place] [address] [place] [address] [place] [address] [place], [place] [address] Care Teams Park Interpretive Ranger Relationship Specialty Start Date End Date Pcp, Unknown PCP - General 07/16/22 Additional Source Comments The information contained in this document represents components of the legal health record. It is not the complete legal health record.[facility]
--- OUTSIDE RECORDS SUMMARY | 2025-05-06 17:17 | XMS_ITS | Data Portability ---
Author Organization [place] [facility],, KATELYN GAINES MD Address [address] [address] Care Team Providers Care Quality Control Director Name Role Phone [facility] Primary Care Provider [phone] Assessment No assessment recorded. Plan of Treatment [...] Go To The Location Of Their Choice, [id number] 12/02/2022 07:29:18 CBC w/ auto diff 2022 023 [facility] (Centralized Electronic Ordering - All Locations), Patient Can Go To The Location Of Their Choice, [id number] 12/02/2022 07:29:19 lyme disease igg+igm, serum, reflex western blot 2022 023 [facility] (Centralized Electronic Ordering - All Locations), Patient Can Go To The Location Of Their Choice, [id number] 12/02/2022 07:29:19 Referral None recorded. Procedures removal, implantab le contracep tive (PROC) 2022 023 [facility] In-Office Order, Internal Use Only DO Not Attach Compendium DO Not Attach Compendium, Do Not Delete/merge, [id number] 12/22/2022 09:47:39 Surgeries None recorded. Imaging None recorded. Medication Orders Lo Loestrin Fe 1 mg-10 mcg (24)/10 mcg (2) tablet 2024 025 [facility] #[id number], [address] [place], [address], 10/24/2024 09:29:50 Lo Loestrin Fe 1 mg-10 mcg (24)/10 mcg (2) tablet 2023 024 [facility] #[id number], [address] [place], [address], 10/24/2023 10:30:59 Patient TargetsNo targets recorded. Patient Instructions Encounter Date Encounter Id Patient Instructions Last Modified By Organization Details Last Modified Time 11/25/2022 [id number] This visit is a phone telehealth visit. The patient consented to the visit by phone. The patient was at home at the time of the call and the provider and patient were the only people on the line. I was at [address] [place] [address], [address], [place], at the time of the call. She is concerned because she had had fatigue since she has had the abnormal vaginal bleeding happening, over the past year. She had a CBC done with her prior pressure welder a few months ago and she was [...] has had irregular bleeding since then. Her AUDIOVISUAL TECHNICIAN, Dr. Brittany Barton, had her get a [...] provera. She is reassured that her prior pressure welder did do everything in the right order, [...] 30 minutes Not available 11/25/2022 09:18:37 12/22/2022 [id number] She is here for Nexplanon removal. She [...] care discussed. Not available 12/22/2022 09:43:37 10/24/2023 [id number] learning about healthy weight [email or web address] Not available [...] pharmacy. alan Not available 10/24/2023 10:31:10 06/04/2024 [id number] secondary amenorrhea: care instructions alan Not available [...] has had irregular bleeding since then. Her AUDIOVISUAL TECHNICIAN, Dr. Brittany Barton, had her get a [...] provera. She is reassured that her prior pressure welder did do everything in the right order, [...] minutes alan Not available 06/04/2024 11:39:46 10/24/2024 [id number] learning about healthy weight alan Not available [...] has had irregular bleeding since then. Her AUDIOVISUAL TECHNICIAN, Dr. Brittany Barton, had her get a [...] provera. She is reassured that her prior pressure welder did do everything in the right order, [...] DO Not Attach Compendium, Do Not Delete/merge, [id number] 12/22/2022 08:53:38 10/24/19 24 10/26/2023 IGP, CTNG, RFX APTIM A HPV ASCU chlamydia, nuc. acid amp Negati ve negati ve Not Available [facility] ([facility]) [address] [place], [address], 10/27/2023 12:06:43 10/24/19 24 10/26/2023 IGP, CTNG, RFX APTIM A HPV ASCU gonococcus, nuc. acid amp Negati ve negati ve Not Available [facility] ([facility]) [address] [place], [address], 10/27/2023 12:06:43 10/24/19 24 10/27/2023 IGP, CTNG, RFX APTIM A HPV ASCU diagnosis: Commen t NEGAT CARMINE FOR INTRA EPITH ELIAL LESIO N OR MALIG MICHELLE . FUNGA L ORGAN ISMS MORPH OLOGI OLAMIDE CONSI STENT WITH JONATHAN DA SPECI ES ARE PRESE NT. Not Available [facility] ([facility]) [address] [place], [address], 10/27/2023 12:06:43 10/24/19 24 10/27/2023 IGP, CTNG, RFX APTIM A HPV ASCU specimen adequacy: Tye nunn Satis ron torres for evalu ation . Endoc ervic al and/o r squam ous metap lasti c cells (endo cervi tyrese compo nent) are prese nt. Not Available [facility] ([facility]) [address] [place], [address], 10/27/2023 12:06:43 10/24/19 24 10/27/2023 IGP, CTNG, RFX APTIM A HPV ASCU clinician provided ICD10: Tye nunn Z01.4 19 Not Available [facility] ([facility]) [address] [place], [address], 10/27/2023 12:06:43 10/24/19 24 10/27/2023 IGP, CTNG, RFX APTIM A HPV ASCU performed by: Ale Hull (ASCP ) Not Available [facility] ([facility]) [address] [place], [address], 10/27/2023 12:06:43 10/24/19 24 10/27/2023 IGP, CTNG, RFX APTIM A HPV ASCU . . Not Available [facility] ([facility]) [address] [place], [address], 10/27/2023 12:06:43 10/24/19 24 10/27/2023 IGP, CTNG, [...] ts do occur . Not Available [facility] ([facility]) [address] [place], [address], 10/27/2023 12:06:43 10/24/19 24 10/27/2023 IGP, CTNG, RFX APTIM A HPV ASCU test methodology: TNP The Thin Prep( R) Image r was unabl e to read this speci men. There fore a manua l revie w was perfo rmed. Not Available [facility] ([facility]) [address] [place], [address], 10/27/2023 12:06:43 10/24/19 24 10/27/2023 IGP, CTNG, RFX APTIM A HPV ASCU . Commen t The HPV DNA refle x crite nohemi were not met with this speci men resul t there fore, no HPV testi ng was perfo rmed. Not Available [facility] ([facility]) [address] [place], [address], 10/27/2023 12:06:43 10/25/19 25 10/25/2024 IGP, CTNG, RFX APTIM A HPV ASCU chlamydia, nuc. acid amp Negati ve negati ve Not Available [facility] ([facility]) [address] [place], [address], 10/29/2024 14:20:21 10/25/19 25 10/25/2024 IGP, CTNG, RFX APTIM A HPV ASCU gonococcus, nuc. acid amp Negati ve negati ve Not Available [facility] ([facility]) [address] [place], [address], 10/29/2024 14:20:21 10/25/19 25 10/29/2024 IGP, CTNG, RFX APTIM A HPV ASCU diagnosis: Commen t NEGAT CARMINE FOR INTRA EPITH ELIAL LESIO N OR MALIG MICHELLE . FUNGA L ORGAN ISMS MORPH OLOGI OLAMIDE CONSI STENT WITH JONATHAN DA SPECI ES ARE PRESE NT. Not Available [facility] ([facility]) [address] [place], [address], 10/29/2024 14:20:21 10/25/19 25 10/29/2024 IGP, CTNG, RFX APTIM A HPV ASCU specimen adequacy: Commen t Satis facto ry for evalu ation . Endoc ervic al and/o r squam ous metap lasti c cells (endo cervi tyrese compo nent) are prese nt. Not Available [facility] ([facility]) [address] [place], [address], 10/29/2024 14:20:21 10/25/19 25 10/29/2024 IGP, CTNG, RFX APTIM A HPV ASCU clinician provided ICD10: Tye t Z01.4 19 Not Available [facility] ([facility]) [address] [place], [address], 10/29/2024 14:20:21 10/25/19 25 10/29/2024 IGP, CTNG, RFX APTIM A HPV ASCU performed by: Tye t Danny Wilson , Cytol ogist (ASCP ) Not Available [facility] ([facility]) [address] [place], [address], 10/29/2024 14:20:21 10/25/19 25 10/29/2024 IGP, CTNG, RFX APTIM A HPV ASCU . . Not Available [facility] ([facility]) [address] [place], [address], 10/29/2024 14:20:21 10/25/19 25 10/29/2024 IGP, CTNG, [...] ts do occur . Not Available [facility] ([facility]) [address] [facility], [place], [address], 10/29/2024 14:20:21 10/25/19 25 10/29/2024 IGP, CTNG, RFX APTIM A HPV ASCU test methodology: Comm t This liqui d based ThinP rep(R ) pap test was scree samir with the use of an image guide d systchristoph m. Not Available [facility] ([facility]) [address] [facility], [place], [address], 10/29/2024 14:20:21 10/25/19 25 10/29/2024 IGP, CTNG, RFX APTIM A HPV ASCU . Commen t The HPV DNA refle x crite nohemi were not met with this speci men resul t there fore, no HPV testi ng was perfo rmed. Not Available [facility] ([facility]) [address] [place], [address], 10/29/2024 14:20:21 11/23/19 23 11/26/2022 US, pelvi s, trans abdom inal + trans vagin al No observ ation record ed. BARCODE Not Available 2022 08:53:22 Result Notes None recorded. Problems No Known Problems Procedures Surgical History Date Name Laterality Status Provider Name and Address Organization Details Recorded Time 3 Implanon Removal completed Katelyn Gaines MD [address] [facility],[address], [place], [address], [place] [facility], 12/22/2022 09:44:40 Imaging Results None recorded. Procedure Notes None recorded. Medical Equipment None Reported. Allergies Allergen ID Allergen Name Allergen Category Reaction Reaction Severity Criticality Documentation Date Start Date Code Code System Note Provider Name and Address Organization Details Recorded Time 57374 Product containin g penicilli n (product) medicatio n hives Not available Not available 11/22/2022 25259 8001 SNOMED Shanae Adam hutchins [place] [facility], 3 08:32:19 Medications Name Sig [...] 1 CAPSULE BY MOUTH ONCE DAILY AT [facility] THE SAME TIME EACH DAY.*NOT [...] Updated DateTime 4 166.37 cm 21.7 kg/m2 63450.6 3 g 97.4 [degF] 87 /min 109/75 mm[Hg] luzmaria Weir in [facility], 4 09:53:46 Date Recorded Body height Body mass index (BMI) Body weight Heart rate Systolic And Diastolic Provider Name and Address Organization Details Last Updated DateTime 10/24/2024 166.37 cm 22.5 kg/m2 57885.87 g 77 /min 130/66 mm[Hg] Shanae Weir in [facility], 10/24/2024 09:00:46 Date Recorded Body height Provider Name an d Address Organization Details Last Updated DateTime 11/25/2022 166.37 cm Shanae Espinoza in [facility], 11/25/2022 08:31:41 Date Recorded Body height Body mass index (BMI) Body mass index (BMI) [Percentile] Per age and sex Body weight Systolic And Diastolic Provider Name and Address Organization Details Last Updated DateTime 12/22/2022 166.37 cm 22 kg/m2 52 % 82221.3 8 g 112/57 mm[Hg] Anusha Weir in [facility], 3 08:54:53 Date Recorded Body height Body mass index (BMI) Body weight Body temperature Heart rate Systolic And Diastolic Provider Name and Address Organization Details Last Updated DateTime 4 166.37 cm 22.7 kg/m2 04000.1 8 g 98.1 [degF] 84 /min 123/74 mm[Hg] Shanae Weir in [facility], 4 10:51:13 Social History Question Answer Notes LastModified by Organizat ion Details LastModified Time Tobacco Smoking Status Never Smoker [place] in [facility], 11/22/2022 08:37:25 What Is Your Level Of [...] Or The Highest Degree You Have Received? [id number] Information not available 11/22/2022 Who Is Your Employer? [employer]. Information not available 11/22/2022 Are There Any [...] anxious, or unable to sleep at night)? [id number] Information not available 11/22/2022 Family History Relationship Description Onset Age of this Age Resolved Age Notes LastModified by Organization Details LastModified Time Maternal Grandmother Problem great pancre atic tmeczywor Not available 11/22/2022 08:35:45 Paternal Grandfather Malignant neoplasm of colon also great grandf ather tmeczywor Not available 11/22/2022 08:36:19 Father Malignant neoplasm of colon precan cer polyps remove d [...] Organization Details Recorded Time COVID-19 Non-[place] Vaccine, UNSPECIFIED 1 completed Not Available [employer] 12/22/2022 08:54:01 [...] Diagnosis SNOMED-CT Code Diagnosis ICD10 Code Diagnosis IMO Codes Diagnosis Note [id number] MD KATELYN Lozada MD [address] [place] [address],[place] [address] 11/22/2022 08:23:32 11/22/2022 10:09:02 Abnormal uterine bleeding 3693970441 9100 N93.9 [id number] MD KATELYN Lozada MD [address] [place] [address],[place] [address] 11/25/2022 08:30:33 11/25/2022 10:51:27 Fatigue 18535245 R53.83 Abnormal u terine bleeding 5747356184 9100 N93.9 Lower abdominal pain 545 49663 R10.30 [id number] MD KATELYN Lozada MD [address] [place] [address],[place] [address] 12/22/2022 08:49:48 12/22/2022 09:54:47 Subcutaneous contraceptive implant present 610871013 Z30.46 [id number] MD KATELYN Lozada MD [address] [place] [address],[place] [address] 10/24/2023 09:50:46 10/24/2023 12:06:47 Specialized medical examination 97933137 Z01.419 Venereal d isease screening 106838566 Z11.3 [id number] MD KATELYN Lozada MD [address] [place] [address],[place] [address] 06/04/2024 10:44:34 06/04/2024 16:03:15 Amenorrhea 29684409 N91.2 [id number] MD KATELYN Lozada MD [address] [place] [address],[place] [address] 10/24/2024 08:52:32 10/24/2024 10:38:19 Specialized medical examination 86620669 Z01.419 Venereal d isease screening 094544877 Z11.3 Health Concerns Section Related Observation LastModified by Organization Detai ls LastModified Time None Recorded Concern Status LastModified by Organization Details LastModified Time None Recorded Advance Directives Directive None Recorded Payers Insurance Date Sequence Insurance Name Policy Number Policy [place] Covered Member ID [place] Member ID Guarantor Name 10/24/2024 1 [facility] (PPO) [id number] Tamy Parks [id number] Art Kasey 10/24/2024 1 [facility] (PPO[facility] [id number] Tamy Parks [id number] Art Evansmazin Notes Date Note Type Note Provider Name and Address Organization Details Recorded Time 11/25/2022 text/html This visit is a phone telehealth visit. The patient consented to the visit by phone. The patient was at home at the time of the call and the provider and patient were the only people on the line. I was at [address] [place] [address], [address], [place], at the time of the call. She is concerned because she had had fatigue since she has had the abnormal vaginal bleeding happening, over the past year. She had a CBC done with her prior pressure welder a few months ago and she was [...] has had irregular bleeding since then. Her AUDIOVISUAL TECHNICIAN, Dr. Brittany Barton, had her get a [...] provera. She is reassured that her prior pressure welder did do everything in the right order, her case is just challenging. Katelyn Gaines MD [address], [place], [address], [facility], 11/25/2022 09:18:57 12/22/2022 text/html She is [...] MD [address], [place], [address], [facility], 12/22/2022 09:45:21 10/24/2023 text/html She is here for annual, this is her first annual here. She had her Nexplanon removed in 12/31, is doing well on the lo loestrin, no abnormal bleeding. Menses last 7 days of light to moderate bleeding, never heavy. Katelyn Gaines MD [address] [facility],[address], [place], [address], [place] [facility], [...] has had irregular bleeding since then. Her AUDIOVISUAL TECHNICIAN, Dr. Brittany Barton, had her get a [...] provera. She is reassured that her prior pressure welder did do everything in the right order, her case is just challenging. Katelyn Gaines MD [address] [facility],[address], [place], [address], [place] [facility], [...] has had irregular bleeding since then. Her AUDIOVISUAL TECHNICIAN, Dr. Brittany Barton, had her get a [...] provera. She is reassured that her prior pressure welder did do everything in the right order, her case is just challenging. Katelyn Gaines MD [address] [facility],[address] [place] [address], [place] [facility], 10/24/2024 09:30:21 OBGyn Episode No OBEpisode recorded.
--- OUTSIDE RECORDS SUMMARY | 2025-05-06 17:17 | XMS_ITS | Clinical Summary ---
Author Organization [facility] Address [address] [place] [address] Phone Care Team Providers Care Flying I Instructor Name Role Phone Unavailable Primary Care Provider Unavailabl e Allergies Active Allergy Reactions Criticality Noted Date Comments Penicillin G Rash High Medications naproxen 500 MG tablet TAKE 1 TABLET BY MOUTH EVERY 12 HOURS START ON FIRST DAY OF PLACEBO OCPS, END ON DAY 3 OF MENSES. 1 05/29/2019 Active Riboflavin (Vitamin B-2) 100 MG tabletIndicatio ns:Other headache syndrome Take 1 tablet by mouth 2 (two) times a day. 180 tablet 3 06/09/2023 Active Magnesium Oxide, Antacid, 500 MG capsuleIndicati ons:Other headache syndrome Take 500 mg by mouth daily. 90 capsule 3 06/09/2023 Active Lo Loestrin Fe 1 MG-10 MCG / 10 MCG tablet TAKE 1 TABLET BY MOUTH EVERY DAY FOR 84 DAYS 06/05/2023 Active SUMAtriptan 50 MG tabletIndicatio ns:Other headache syndrome TAKE 1 TABLET BY MOUTH ONCE NEEDED FOR MIGRAINE (MAY REPEAT IN 2 HOURS IF SYMPTOMS PERSIST) DO NOT EXCEED 2 DOSES IN 24 HOURS. 12 tablet 1 06/29/2023 Active Active Problems Problem Noted Date Diagnosed Date Other headache syndrome 02/15/2022 Overview (02/15/2022): Daily, night time. Wearing glasses. Assessment & Plan (02/15/2022 10:46 AM EDT): Starting B2 and magnesium prophylaxis; asked her to see Optho for a recheck Epistaxis 10/08/2021 Assessment & Plan (02/15/2022 9:56 AM EDT): Getting better although really more affected in the change of seasons. Vaseline to nasal septum, missed ENT appointment, rescheduled for May. Assessment & Plan (10/08/2021 11:36 PM EDT): Reviewed supportive care. Compression of nose, tilt head forward, cool compress on nasal bridge. Can use nasal saline spray prn. Cool mist humidifier in her room at night, clean humidifier as directed. To not pick nose. To call or go to ER if nose bleeding lasts more than 15-20 minutes. Since can't see area that has been bleeding and it has been going on so long and Mely recommended she see ENT to check for nasal polyps. Will refer to ENT. Dysmenorrhea 03/02/2021 Assessment & Plan (03/02/2021 5:24 PM EDT): Followed by DIRECTOR [facility]ER[facility] for heavy periods. On new OCP, period more irregular. Has follow up in a few weeks. 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 Assessment & Plan (02/15/2022 9:55 AM EDT): Left dancing, since has been having some sciatica, managing pain better. Assessment & Plan (01/12/2019 11:25 AM EDT): Followed by specialist. Immunizations Immunization Administration Dates Next Due DTaP 04/06/2007, 4,2002,10/15,2002 HPV Vaccine 9 Valent 01/01/2016 HPV, Quadrivalent 12/04/2014,10/03/2014 Hep A, ped/adol 01/05/2018,01/04/2017 Hep B, ped/adol 03/19/2003,2002,2002 Hib (PRP-T) 09/16/2003, 3,2002,08/16 IPV 04/06/2007, 3,2002,08/16 Influenza, injectable, quadrivalent 04/22/2012 Influenza, injectable, quadr ivalent, preservative free 05/01/2019 Influenza, injectable, triva lent, preservative free 06/16/2004,04/29/2004 MMR 06/18/2003 MMRV 04/06/2007 Meningococcal Conj (Menactra) MCV4P 01/12/2019,0 10/03/2014 Pneumococcal Conjugate 2002,2002,12/2002 Tdap 10/03/2014 Varicella 06/18/2003 Family History Medical History Relation Name Comments No Known Problems Brother Relation Name Status Comments Brother Alive Father Alive healthy Father's Sister Alive healthy Maternal Grandfather Alive Maternal Grandmother Alive multipl e sclerosis Mother Alive healthy Paternal Grandfather Alive healthy Paternal Grandmother Alive healthy Social History Tobacco Use Types Packs/Day Years [...] Orientation Straight 03/02/2021 5: 23 PM EDT Last Filed Vital Signs Vital Sign Reading Time Taken Comments Blood Pressure 120/76 06/09/2023 8:29 AM EST Pulse - - Temperature 37.5 C (99.5 F) 09/10/2019 8:32 AM EST Respiratory Rate 98 09/06/2019 3:59 PM EST Oxygen Saturation - - Inhaled Oxygen Concentration - - Weight 56.6 kg (124 lb 12.8 oz) 06/09/2023 8:29 AM EST Height 166.4 cm (5' 5.5 ) 06/09/2023 8:29 AM EST Body Mass Index 20.45 06/09/2023 8:29 AM EST Plan of Treatment Health Maintenance Due Date Last Done Comments Men B Vaccine (1 of 2 - Standard) 2018 DTaP,Tdap,and Td Vaccines (7 - Td or Tdap) 10/03/2024 10/03/2014, 04/06/2007, 09/16/2003, Additional history exists Influenza Vaccines (#1) 2025 05/01/20 19, 04/22/2012, 06/16/2004, Additional history exists COVID-19 Vaccine ( season) 2025 12/02/2020, 11/04/2020 Pneumococcal Vaccine Aged Out 2002, 2002, 2002 No longer eligible based on patient's age to complete this topic Hepatitis B Vaccines Completed 03/19/2003, 2002, 2002 HIB Vaccines Completed 09/16/2003, 12/2002, 2002, Additional history exists IPV Vaccines Completed 04/06/2007, 03/2003, 2002, Additional history exists MMR Vaccines Completed 04/06/2007, 06/18/2003 Varicella Vaccines Completed 04/06/2007, 06/18/2003 HPV Vaccines Completed 01/01/2016, 11/09, 10/03/2014 Hepatitis A Vaccines Completed 01/05/2018, 01/05/20 17 Meningococcal Vaccine Completed 01/12/2019, 015 Procedures * Due to [place] [employer] law, this organization might not be sharing sensitive test results. Procedure Name Priority Date/Time Associated Diagnosis Comments CHLAMYDIA AND GONORRHEA, AMPLIFIED Routine 03/02/2021 4:22 PM EDT Well adult exam from Last 3 Months or Most Recently Relevant to Health Maintenance Results * Due to [facility] law, this organization might not be sharing sensitive test results. * Chlamydia and Gonorrhea, Amplified (03/02/2021 4:22 PM EDT) Chlamydia Trachomatis, DNA Probe NEGATIVE (NEG) [facility] Comment: No Chlamydia Trachomatis RNA detected in this patient's sample (REFERENCE RANGE/NORMAL VALUE: NOT DETECTED) Note: This test uses computer tech- mediated amplification method to detect rRNA from C. Trachomatis URINE GC AMP PROBE NEGATIVE (NEG) [facility] Comment: No Neisseria Gonorrhoeae RNA detected in this patient's sample (REFERENCE RANGE/NORMAL VALUE: NOT DETECTED) NOTE: This test uses computer tech-mediated amplification method to detect rRNA from N.Gonorrhoeae. A negative result does not preclude infection. In the case of a negative urine result, testing of an endocervical(female) or urethral (male) specimen is recommended if there is high clinical suspicion of infection. Due to very high sensitivity of Nucleic Acid Amplification Test, false positive results may occur. Therefore, specimen handling is extremely important. In patients in whom the disease is unlikely, additional sample for testing should be considered after an initial positive result. The performance characteristics of this test have not been evaluated in children. The Aptima Combo2 assay is not intended for the evaluation of suspected sexual abuse or for other medico-legal indications. The ordering provider should assess if the patient had consensual sex without risk of sexual abuse. Consult the [facility] if needed. Contact phone number . Therapeutic failure or success cannot be determined with the Aptima Combo2 assay since nucleic acid may persist following appropriate antimicrobial therapy. The Centers for Disease Control and Prevention (CDC) recommends confirmatory retesting using culture or a different nucleic acid amplification test when positive results occur, if indicated. Testing performed or reported by [facility], a Service of [facility], [address] [place] [address] Shai John MD, Veterinary Technology Instructor [facility]# [id number] Urine (Urine) 03/02/2021 4:2 2 PM EDT 03/02/2021 11:08 PM EDT Kerry Dorantes GEOTECHNICAL LABORATORY TECHNICIAN LAB MICROBIOLOGY - [facility] AL ORDERABLES Final Result [facility] from Last 3 Months or Most Recently Relevant to Health Maintenance Insurance [facility] [employer] [place] [id number] [facility] [employer] [place] [id number]
== END 2025-05-06 14:22 | disposition home or self-care (01) ==
LOC: HO.HMCFM 13:37
PROVIDERS: PCP Nurse Practitioner Family; Visit Provider Nurse Practitioner Family
DX: R10.9 Unspecified abdominal pain (principal); Z80.0 Family history of malignant neoplasm of digestive organs; R19.7 Diarrhea, unspecified

== ENCOUNTER 2025-05-06 15:39 | Outpatient (REF) | payer BC, SELFPAY | END 2025-05-06 15:40 | disposition home or self-care (01) | LOC: HO.US 15:39 | PROVIDERS: PCP Nurse Practitioner Family; Visit Provider Nurse Practitioner Family | DX: Z13.89 Encounter for screening for other disorder (principal) ==

== ENCOUNTER 2025-05-08 07:23 | Outpatient (REF) | payer OTHER, SELFPAY ==
--- OUTSIDE RECORDS SUMMARY | 2022-07-16 14:38 | XMS_ITS | Encounter Summary ---
Author Organization [facility] Address [address] [place] [address] Phone Care Team Providers Care Automotive Service Writer Name Role Phone Pcp, Unknown Primary Care Provider Unavailabl e Encounter Details Date Type Department Care Team (Late st Contact Info) Description 07/16/2022 1:38 PM EST Hospital Encounter [facility] [address] [place] [phone] Gisell Doan FNP 12 [place] [address] [email or web address] Social History Tobacco Use Types Packs/Day Years [...] reportoriginally created by Stanley Stanley. Gisell Doan WORKERS' COMPENSATION COMMISSIONER IMG XR LOWER EXTREMITY Camille l Result documented in this encounter Visit Diagnoses Not on filedocumented in this encounter Care Teams Automotive Service Writer Relationship Specialty Start Date End Date Pcp, Unknown PCP - General 07/16/22 documented as of this encounter Additional Source Comments The information contained in this document represents components of the legal health record. It is not the complete legal health record.[facility]
--- OUTSIDE RECORDS SUMMARY | 2022-07-16 14:39 | XMS_ITS | Encounter Summary ---
Author Organization [facility] Address [address] [place] [address] Phone Care Team Providers Care Pantograph Engraver Name Role Phone Pcp, Unknown Primary Care Provider Unavailabl e Encounter Details Date Type Department Care Team (Late st Contact Info) Description 07/16/2022 1:39 PM EST Hospital Encounter [facility] [address] [place] [phone] Gisell Doan FNP [address] [place] [address] [email or web address] Social History Tobacco Use Types Packs/Day [...] Name Priority Date/Time Associated Diagnosis Comments XR TIBIA FIBULA 2 VIEWS (RIGHT) Urgent/patient waiting 07/16/2022 1:49 PM EST Fall, initial encounter documented in this encounter Results * XR Tibia Fibula 2 Views (Right) (07/16/2022 1:49 PM EST) Anatomical Region Laterality Modality Leg Right Computed Radiogr aphy 07/16/2022 2:04 PM EST Impressions 07/16/2022 2:31 PM EST [...] reportoriginally created by Stanley Stanley. Gisell Doan EARTH MOVER IMG XR LOWER EXTREMITY Camille l Result documented in this encounter Visit Diagnoses Not on filedocumented in this encounter Care Teams Pantograph Engraver Relationship Specialty Start Date End Date Pcp, Unknown PCP - General 07/16/22 documented as of this encounter Additional Source Comments The information contained in this document represents components of the legal health record. It is not the complete legal health record.[facility]
--- NOTE | ~2025-05-08 | US_ITS ---
EXAMINATION: US APPENDIX TECHNIQUE: Ultrasound with graded compression was performed in the right lower quadrant. HISTORY: Left lower quadrant/periumbilical pain with diarrhea, asses for appendicitis COMPARISON: There are no prior studies available for comparison. FINDINGS: The appendix is not identified. No hernia is seen in the periumbilical region. The right ovary is not identified. The left ovary measures 2.7 x 2.0 x 1.8 cm and is unremarkable. US/US appendix IMPRESSION: The appendix is not identified. The examination is non-diagnostic for appendicitis. If there is continued clinical suspicion for acute appendicitis, CT should be obtained for further evaluation. Electronically signed by: Perry Boateng MD 05/08/2025 07:50 AM EDT
--- OUTSIDE RECORDS SUMMARY | 2025-05-08 07:24 | XMS_ITS | Encounter Summary ---
Author Organization [facility] Address [address] [place] [address] Phone Care Team Providers Care Supervisor Final Name Role Phone Ashlyn Galeano NP Primary Care Provider [phone] Encounter Details Date Type Department Care Team (Late st Contact Info) Description 11/27/2017 Conversion Encounter [facility] [address] [place] [address] Maria Eugenia Mcdowell MD Social History Tobacco [...] on filedocumented in this encounter Care Teams Supervisor Final Relationship Specialty Start Date End Date Ashlyn Galeano NP [address] [place] [address] PCP - General Pediatrics 04/05/19 08/19/24 documented as of this encounter
--- OUTSIDE RECORDS SUMMARY | 2025-05-08 07:24 | XMS_ITS | Clinical Summary ---
Author Organization [facility] Address [address] [address] Phone Care Team Providers Care Automobile Tire Builder Name Role Phone Pcp, Unknown Primary Care [...] 10/03/2014 Medical Devices Not on file Insurance [facility] [address] [place], [place] [address] [place], [place] [address] [place], [place] [address] [place] [address] [place], [place] [address] Care Teams Automobile Tire Builder Relationship Specialty Start Date End Date Pcp, Unknown PCP - General 07/16/22 Additional Source Comments The information contained in this document represents components of the legal health record. It is not the complete legal health record.[facility]
--- OUTSIDE RECORDS SUMMARY | 2025-05-08 07:24 | XMS_ITS | Encounter Summary ---
Author Organization [facility] Address [address] [place] [address] Phone Care Team Providers Care Lighting Fixtures Decorator Name Role Phone Ashlyn Galeano NP Primary Care Provider [phone] Reason for Visit * Reason Comments Med Change Request Encounter Details Date Type Department Care Team (Late st Contact Info) Description 03/27/2022 Refill [facility] [address] [place] [phone] Ashlyn Galeano NP [address] [place], [place] [phone] Other headache syndrome Social History Tobacco Use [...] syndrome documented in this encounter Care Teams Lighting Fixtures Decorator Relationship Specialty Start Date End Date Ashlyn Galeano NP [address] [facility] [address] PCP - General Pediatrics 04/05/19 08/19/24 documented as of this encounter
--- OUTSIDE RECORDS SUMMARY | 2025-05-08 07:24 | XMS_ITS | Encounter Summary ---
Author Organization [facility] Address [address] [place] [address] Phone Care Team Providers Care Hunting Sales Leader Name Role Phone Ashlyn Galeano NP Primary Care Provider [phone] Reason for Visit * Reason Comments Med Refill Encounter Details Date Type Department Care Team (Late st Contact Info) Description 06/29/2023 Refill [facility] [address] [place] [phone] Ashlyn Galeano NP [address] [place], [place] [phone] Other headache syndrome Social History Tobacco Use [...] syndrome documented in this encounter Care Teams Hunting Sales Leader Relationship Specialty Start Date End Date Ashlyn Galeano NP [address] [place] [address] PCP - General Pediatrics 04/05/19 08/19/24 documented as of this encounter
--- OUTSIDE RECORDS SUMMARY | 2025-05-08 07:24 | XMS_ITS | Clinical Summary ---
Author Organization [facility] Address [address] [place] [address] Phone Care Team Providers Care Mud Analysis Supervisor Name Role Phone Unavailable Primary Care Provider [...] Plan (03/02/2021 5:24 PM EDT): Followed by [facility]YMAN for heavy periods. On new OCP, period [...] Completed 01/12/2019, 015 Procedures * Due to [place] [employer] law, this organization might not be sharing sensitive test results. Procedure Name Priority Date/Time Associated Diagnosis Comments CHLAMYDIA AND GONORRHEA, AMPLIFIED Routine 03/02/2021 4:22 PM EDT Well adult exam from Last 3 Months or Most Recently Relevant to Health Maintenance Results * Due to [facility] law, this organization might not be sharing sensitive test results. * Chlamydia and Gonorrhea, Amplified (03/02/2021 4:22 PM EDT) Chlamydia Trachomatis, DNA Probe NEGATIVE (NEG) [facility] Comment: No Chlamydia Trachomatis RNA detected in this patient's sample (REFERENCE RANGE/NORMAL VALUE: NOT DETECTED) Note: This test uses nursing unit manager- mediated amplification method to detect rRNA from C. Trachomatis URINE GC AMP PROBE NEGATIVE (NEG) [facility] Comment: No Neisseria Gonorrhoeae RNA detected in this patient's sample (REFERENCE RANGE/NORMAL VALUE: NOT DETECTED) NOTE: This test uses nursing unit manager-mediated amplification method to detect rRNA from N.Gonorrhoeae. [...] without risk of sexual abuse. Consult the [facility] if needed. Contact phone number . Therapeutic failure or success cannot be determined with the Aptima Combo2 assay since nucleic acid may persist following appropriate antimicrobial therapy. The Centers for Disease Control and Prevention (CDC) recommends confirmatory retesting using culture or a different nucleic acid amplification test when positive results occur, if indicated. Testing performed or reported by [facility], a Service of [facility], [address] [place] [address] Shai John MD, Outside Cutter [facility]# [id number] Urine (Urine) 03/02/2021 4:2 2 PM EDT 03/02/2021 11:08 PM EDT Kerry Dorantes BIOLOGICAL TECHNICIAN LAB MICROBIOLOGY - [facility] AL ORDERABLES Final Result [facility] from Last 3 Months or Most Recently Relevant to Health Maintenance Insurance [facility] [employer] [place] [id number] [facility] [employer] [place] [id number]
[2025-05-08 14:23] LABS: OBS Date 1 10/28/25; OBS Date 2 10/29/25
[2025-05-08 14:26] LABS: OBS Date 3 10/29/25; OBS Int Ctl Valid YES; OBS Lot 50142; OBS1 NEGATIVE (NEGATIVE); OBS2 POSITIVE (NEGATIVE); OBS3 NEGATIVE (NEGATIVE)
[2025-05-08 16:10] LABS: E. coli EAEC Not Detected (Not Detect.); E. coli EPEC Not Detected (Not Detect.); E. coli ETEC Not Detected (Not Detect.); E. coli STEC Not Detected (Not Detect.); Shigella sp./EIEC Not Detected (Not Detect.)
[2025-05-15 01:03] LABS: Calprotectin, Fecal 20 mcg/g
== END 2025-05-08 07:24 | disposition home or self-care (01) ==
LOC: HO.US 07:23
PROVIDERS: PCP Nurse Practitioner Family; Visit Provider Nurse Practitioner Family
DX: R10.9 Unspecified abdominal pain (principal)
CPT/HCPCS: 76705; 82270; 83993; 87507

== ENCOUNTER → 2025-05-08 07:24 | Outpatient (BNV) | payer OTHER, SELFPAY | PROVIDERS: PCP Nurse Practitioner Family; Visit Provider Radiology Diagnostic Radiology | DX: R10.9 Unspecified abdominal pain (principal) | CPT/HCPCS: 76705 ==